=== PATIENT | male | born 1970 | race Caucasian/White ===

== ENCOUNTER 2017-01-09 13:01 | Inpatient (IN) ==
--- NOTE | 2017-01-09 13:13 | Emergency Department Note ---
Disposition Clinical Impression: Sepsis, Obesity, Headache, Cellulitis of right thigh Disposition: Admitted As Inpatient Referrals: Amol Han DO [Primary Care Provider] - Forms: ED Satisfaction Letter General Adult HPI - General Chief complaint: ED Dizziness Stated complaint: dizziness Time Seen by Provider: 01/09/17 13:12 Source: patient Limitations: no limitations - History of Present Illness HPI Narrative: 46-year-old male reports emergency department complaining of feeling weak and somewhat dizzy. He has a headache as well. There is no history of syncope or seizure. No head trauma neck stiffness or rash. The patient has had a cough. He describes some chills and feeling warm as well. He describes a rash on the right medial thigh. No history of bug bite genital swelling or scrotal pain. No swelling around the genitalia reported. No chest pain leg swelling coughing up blood or syncope. There has been no abdominal pain vomiting or diarrhea. No flank or acute back pain. No urinary symptoms. No confusion. No trouble moving the arms or legs independently. No weakness or numbness on one side the body no slurred speech. The patient reports he felt poorly yesterday and left work early. The patient is not known to be diabetic. No other complaints or concerns noted. Pain Scale: 8 - Related Data Home Medications Medication Instructions Recorded Confirmed Valsartan/Hydrochlorothiazide 1 each PO DAILY 03/18/15 03/18/15 [Diovan Hct 80-12.5 mg Tablet] Previous Rx's Medication Instructions Recorded Clindamycin [Cleocin] 300 mg PO Q8HR #6 capsule 03/18/15 OxyCODONE Immed Rel [Roxicodone 5 5 mg PO Q6HR PRN #20 tablet 03/18/15 MG] Allergies Allergy/AdvReac Type Severity Reaction Status Date / Time No Known Allergies Allergy Verified 03/18/15 12:41 All systems ED: reviewed and negative except as stated. Past Medical History - Past Medical History Medical history: Reports: hypertension Surgical history: Reports: other Psychiatric history: Reports: no psych history - Social History Smoking Status: Never smoker Smokeless Tobacco Status: No Alcohol use: Reports: none Drug use: Reports: none Physical Exam - General Limitations: no limitations General appearance: alert, in no apparent distress - Head Head exam: atraumatic, normocephalic, normal inspection - Eye Eye exam: Present: normal appearance, PERRL, EOMI. Absent: scleral icterus, conjunctival injection, mydriasis - ENT ENT exam: normal exam, normal oropharynx, mucous membranes moist, TM's normal bilaterally, normal external ear exam - Neck Neck exam: Present: normal inspection, full ROM, trachea midline. Absent: tenderness - Chest Chest inspection: Present: symmetric chest wall rise. Absent: tenderness - Respiratory Respiratory exam: Present: normal lung sounds bilaterally. Absent: respiratory distress, wheezes, stridor, accessory muscle use, prolonged expiratory phase - Cardiovascular Cardiovascular exam: Present: normal rhythm, tachycardia - Abdominal Exam Abdominal exam: Present: soft, Non-Tender, normal bowel sounds. Absent: tenderness, distention, guarding, rebound, rigidity, pulsatile mass - Extremities Exam Extremities exam: Present: full ROM, normal capillary refill, other (All 4 extremities are warm and well-perfused and supple show no evidence of trauma. The right medial thigh was inspected there is an area that is fairly large and erythematous about 10 cm x 10 cm. There is no scrotal change or evidence of Julio C's gangrene. There is no crepitance of the skin abscess or fluctuance no blackening skin blistering or streaking angitis. All 4 extremity is are warm and well perfused without cyanosis, there is no evidence of acute neuromuscular or neurovascular compromise.). Absent: tenderness, pedal edema, joint swelling, calf tenderness - Expanded Lower Extremity Exam Lower leg exam: Absent: Homans' sign Neurovascular/Tendon exam: Present: normal capillary refill. Absent: motor deficit, sensory deficit, tendon deficit, extremity cold to touch, pallor - Back Exam Back exam: Present: normal inspection, full ROM. Absent: tenderness, CVA tenderness (R), CVA tenderness (L), vertebral tenderness - Neurological Exam Neurological exam: Present: alert, oriented X3, CN II-XII intact. Absent: motor sensory deficit - Psychiatric Psychiatric exam: Present: normal affect, normal mood - Skin Skin exam: Present: warm, dry, intact, normal color. Absent: rash, cyanosis, diaphoresis, erythema, pallor, mottled Course Vital Signs Temperature 99.2 F 01/09/17 13:03 Pulse Rate 125 01/09/17 13:03 Respiratory Rate 18 01/09/17 13:03 Blood Pressure 122/73 01/09/17 13:03 O2 Sat by Pulse Oximetry 97 01/09/17 13:03 Temperature 99.2 F 01/09/17 13:03 Pulse Rate 111 01/09/17 14:30 Respiratory Rate 26 01/09/17 14:30 Blood Pressure 117/87 01/09/17 14:30 O2 Sat by Pulse Oximetry 98 01/09/17 14:30 Oxygen Delivery Oxygen Delivery Nasal Cannula Medical Decision Making - MDM Narrative Medical decision making narrative: Patient is tachycardic, has no elevated white count, his CRP is notably elevated , he appears to be septic, likely from cellulitis, he has a large reddened area on his right medial thigh. The area does not traverse into the scrotum or perineal area. I do not suspect Julio C's gangrene. The patient was given IV fluids in the ED as well as broad-spectrum antibiotics. Blood cultures were sent. Regarding the patient's headache, he has no nuchal rigidity, he reports he headache is there "just enough to feel it" I do not strongly suspect meningitis. A CT scan f the head has been ordered as precautionary. The patient has no abdominal tenderness to palpation. It appears the patient has cellulitis as a primary source for infection with secondary sepsis. Based on the patient's elevated white count, tachycardia, elevated CRP, cellulitis, and apparent sepsis I think it would be appropriate to admit the patient to the hospital. I discussed the case with the hospitalist on-call who has accepted the patient to their care. - Lab Data Lab results reviewed: Yes I reviewed the patient's lab results. Result diagrams: 01/09/17 13:33 01/09/17 13:33 Lab Results 01/09/17 01/09/17 01/09/17 Range/Units 13:20 13:33 13:33 WBC 20.9 H (4.3-11.1) K/mcL RBC 4.83 (4.19-5.50) M/mcL Hgb 13.6 (12.9-16.9) g/dL Hct 40.7 (37.5-50.1) % MCV 84.3 (83.0-100.0) fL MCH 28.2 (28.0-33.3) pg MCHC 33.4 (31.6-35.5) g/dL RDW 14.1 (11.5-14.5) % Plt Count 229 (140-400) K/mcL MPV 9.8 (9.4-12.4) fL Immature Gran % 0.4 (0-4) % Seg Neutrophils % 83.7 % Lymphocytes % 8.5 % Monocytes % 7.3 % Eosinophils % 0.0 % Basophils % 0.1 % Neutrophils # 17.4 H (1.6-8.9) K/mcL Lymphocytes # 1.8 (0.6-4.6) K/mcL Monocytes # 1.5 H (0.0-1.3) K/mcL Eosinophils # 0.0 (0.0-0.6) K/mcL Basophils # 0.0 (0.0-0.2) K/mcL PT 15.8 H (9.4-12.1) Seconds INR 1.5 APTT 31.4 (26.0-36.0) Seconds Sodium (136-145) mEq/L Potassium (3.5-4.5) mEq/L Chloride (98-109) mEq/L Carbon Dioxide (19-29) mEq/L BUN (8-26) mg/dL Creatinine (0.72-1.25) mg/dL Est GFR ( Amer) (> 60) Est GFR (Non-Af Amer) (> 60) BUN/Creatinine Ratio (6-26) Glucose (70-99) mg/dL Calculated Osmolality (280-300) Lactic Acid (0.5-2.2) mmol/L Calcium (8.6-10.8) mg/dL Phosphorus (2.3-4.7) mg/dL Magnesium (1.6-2.6) mg/dL Total Bilirubin (0.2-1.2) mg/dL Direct Bilirubin (0.0-0.5) mg/dL Indirect Bilirubin (0.0-1.2) mg/dL AST (5-34) Units/L ALT (0-55) Units/L Alkaline Phosphatase (38-126) Units/L Troponin I (0-0.03) ng/mL C-Reactive Protein (Less than 5) mg/L B-Natriuretic Peptide (0-100) pg/mL Serum Total Protein (6.0-8.3) g/dL Albumin (3.5-5.0) g/dL Globulin (2.4-3.5) g/dL Albumin/Globulin Ratio (1.1-2.2) Urine Color Yellow (Yellow) Urine Clarity Cloudy A (Clear) Urine pH 7.5 (5.0-8.0) pH Units Ur Specific [place] 1.023 (1.010-1.025) Urine Protein Trace (Neg-Trace) mg/dL Urine Glucose (UA) Normal (Normal) mg/dL Urine Ketones Negative (Negative) mg/dL Urine Blood Negative (Negative) Urine Nitrite Negative (Negative) Urine Bilirubin Negative (Negative) Urine Urobilinogen Normal (Normal) mg/dL Ur Leukocyte Esterase Negative (Negative) Urine Microscopic RBC 0-3 (0-3) per hpf Urine Microscopic WBC 0-3 (0-3) per hpf Ur Squamous Epith Cells Moderate H (None-Few) per lpf Urine Bacteria None Seen (None-Few) per hpf Hyaline Casts None Seen (None-Few) per lpf Ur Culture Indicated? NO (NO) 01/09/17 01/09/17 01/09/17 Range/Units 13:33 13:33 13:33 WBC (4.3-11.1) K/mcL RBC (4.19-5.50) M/mcL Hgb (12.9-16.9) g/dL Hct (37.5-50.1) % MCV (83.0-100.0) fL MCH (28.0-33.3) pg MCHC (31.6-35.5) g/dL RDW (11.5-14.5) % Plt Count (140-400) K/mcL MPV (9.4-12.4) fL Immature Gran % (0-4) % Seg Neutrophils % % Lymphocytes % % Monocytes % % Eosinophils % % Basophils % % Neutrophils # (1.6-8.9) K/mcL Lymphocytes # (0.6-4.6) K/mcL Monocytes # (0.0-1.3) K/mcL Eosinophils # (0.0-0.6) K/mcL Basophils # (0.0-0.2) K/mcL PT (9.4-12.1) Seconds INR APTT (26.0-36.0) Seconds Sodium 134 L (136-145) mEq/L Potassium 4.1 (3.5-4.5) mEq/L Chloride 101 (98-109) mEq/L Carbon Dioxide 23 (19-29) mEq/L BUN 8 (8-26) mg/dL Creatinine 0.94 (0.72-1.25) mg/dL Est GFR ( Amer) > 60 (> 60) Est GFR (Non-Af Amer) > 60 (> 60) BUN/Creatinine Ratio 9 (6-26) Glucose 142 H (70-99) mg/dL Calculated Osmolality 279 L (280-300) Lactic Acid (0.5-2.2) mmol/L Calcium 10.4 (8.6-10.8) mg/dL Phosphorus 1.4 L (2.3-4.7) mg/dL Magnesium 1.4 L (1.6-2.6) mg/dL Total Bilirubin 1.3 H (0.2-1.2) mg/dL Direct Bilirubin 0.5 (0.0-0.5) mg/dL Indirect Bilirubin 0.8 (0.0-1.2) mg/dL AST 14 (5-34) Units/L ALT 20 (0-55) Units/L Alkaline Phosphatase 77 (38-126) Units/L Troponin I 0.01 (0-0.03) ng/mL C-Reactive Protein 168 H (Less than 5) mg/L B-Natriuretic Peptide 13 (0-100) pg/mL Serum Total Protein 6.7 (6.0-8.3) g/dL Albumin 3.2 L (3.5-5.0) g/dL Globulin 3.5 (2.4-3.5) g/dL Albumin/Globulin Ratio 0.9 L (1.1-2.2) Urine Color (Yellow) Urine Clarity (Clear) Urine pH (5.0-8.0) pH Units Ur Specific [place] (1.010-1.025) Urine Protein (Neg-Trace) mg/dL Urine Glucose (UA) (Normal) mg/dL Urine Ketones (Negative) mg/dL Urine Blood (Negative) Urine Nitrite (Negative) Urine Bilirubin (Negative) Urine Urobilinogen (Normal) mg/dL Ur Leukocyte Esterase (Negative) Urine Microscopic RBC (0-3) per hpf Urine Microscopic WBC (0-3) per hpf Ur Squamous Epith Cells (None-Few) per lpf Urine Bacteria (None-Few) per hpf Hyaline Casts (None-Few) per lpf Ur Culture Indicated? (NO) 01/09/17 Range/Units 14:00 WBC (4.3-11.1) K/mcL RBC (4.19-5.50) M/mcL Hgb (12.9-16.9) g/dL Hct (37.5-50.1) % MCV (83.0-100.0) fL MCH (28.0-33.3) pg MCHC (31.6-35.5) g/dL RDW (11.5-14.5) % Plt Count (140-400) K/mcL MPV (9.4-12.4) fL Immature Gran % (0-4) % Seg Neutrophils % % Lymphocytes % % Monocytes % % Eosinophils % % Basophils % % Neutrophils # (1.6-8.9) K/mcL Lymphocytes # (0.6-4.6) K/mcL Monocytes # (0.0-1.3) K/mcL Eosinophils # (0.0-0.6) K/mcL Basophils # (0.0-0.2) K/mcL PT (9.4-12.1) Seconds INR APTT (26.0-36.0) Seconds Sodium (136-145) mEq/L Potassium (3.5-4.5) mEq/L Chloride (98-109) mEq/L Carbon Dioxide (19-29) mEq/L BUN (8-26) mg/dL Creatinine (0.72-1.25) mg/dL Est GFR ( Amer) (> 60) Est GFR (Non-Af Amer) (> 60) BUN/Creatinine Ratio (6-26) Glucose (70-99) mg/dL Calculated Osmolality (280-300) Lactic Acid 1.6 (0.5-2.2) mmol/L Calcium (8.6-10.8) mg/dL Phosphorus (2.3-4.7) mg/dL Magnesium (1.6-2.6) mg/dL Total Bilirubin (0.2-1.2) mg/dL Direct Bilirubin (0.0-0.5) mg/dL Indirect Bilirubin (0.0-1.2) mg/dL AST (5-34) Units/L ALT (0-55) Units/L Alkaline Phosphatase (38-126) Units/L Troponin I (0-0.03) ng/mL C-Reactive Protein (Less than 5) mg/L B-Natriuretic Peptide (0-100) pg/mL Serum Total Protein (6.0-8.3) g/dL Albumin (3.5-5.0) g/dL Globulin (2.4-3.5) g/dL Albumin/Globulin Ratio (1.1-2.2) Urine Color (Yellow) Urine Clarity (Clear) Urine pH (5.0-8.0) pH Units Ur Specific [place] (1.010-1.025) Urine Protein (Neg-Trace) mg/dL Urine Glucose (UA) (Normal) mg/dL Urine Ketones (Negative) mg/dL Urine Blood (Negative) Urine Nitrite (Negative) Urine Bilirubin (Negative) Urine Urobilinogen (Normal) mg/dL Ur Leukocyte Esterase (Negative) Urine Microscopic RBC (0-3) per hpf Urine Microscopic WBC (0-3) per hpf Ur Squamous Epith Cells (None-Few) per lpf Urine Bacteria (None-Few) per hpf Hyaline Casts (None-Few) per lpf Ur Culture Indicated? (NO) - Radiology Data Radiology results reviewed: Yes I reviewed the patient's radiology results.
[2017-01-09 13:45] LABS: Basophils % 0.1 %; Hematocrit 40.7 % (37.5-50.1); Hemoglobin 13.6 g/dL (12.9-16.9); Immature Granulocytes % 0.4 % (0-4); Lymphocytes # 1.8 K/mcL (0.6-4.6); Lymphocytes % 8.5 %; Mean Corpuscular HGB Conc 33.4 g/dL (31.6-35.5); Mean Corpuscular Hemoglobin 28.2 pg (28.0-33.3); Mean Corpuscular Volume 84.3 fL (83.0-100.0); Mean Platelet Volume 9.8 fL (9.4-12.4); Monocytes # 1.5 K/mcL (0.0-1.3); Monocytes % 7.3 %; Neutrophils # 17.4 K/mcL (1.6-8.9); Platelet Count 229 K/mcL (140-400); Red Blood Count 4.83 M/mcL (4.19-5.50); Red Cell Distribution Width 14.1 % (11.5-14.5); Segmented Neutrophils % 83.7 %
[2017-01-09 13:46] LABS: Bilirubin,Urine Negative (Negative); Blood,Urine Negative (Negative); Clarity,Urine Cloudy (Clear); Color,Urine Yellow (Yellow); Glucose,Urine (UA) Normal (Normal); Ketones,Urine Negative (Negative); Leukocyte Esterase,Urine Negative (Negative); Nitrite,Urine Negative (Negative); PH,Urine 7.5 pH Units (5.0-8.0); Protein,Urine Trace mg/dL (Neg-Trace); Specific Gravity,Urine 1.023 (1.010-1.025); Urobilinogen,Urine Normal (Normal)
[2017-01-09 13:47] LABS: Bacteria,Urine None Seen per hpf (None-Few); Hyaline Casts,Urine None Seen per lpf (None-Few); RBC,Urine 0-3 per hpf (0-3); Squamous Epithelial Cell,Urine Moderate per lpf (None-Few); WBC,Urine 0-3 per hpf (0-3)
[2017-01-09] MEDS: 0.9 % Sodium Chloride 1,000 ML IVC SCH ×3 (13:56→20:09)
[2017-01-09 13:59] LABS: Activated Partial Thrombo Time 31.4 Seconds (26.0-36.0); INR 1.5; Prothrombin Time 15.8 Seconds (9.4-12.1)
[2017-01-09 14:20] LABS: Alanine Aminotransferase 20 Units/L (0-55); Albumin 3.2 g/dL (3.5-5.0); Albumin/Globulin Ratio 0.9 (1.1-2.2); Alkaline Phosphatase 77 Units/L (38-126); Aspartate Amino Transferase 14 Units/L (5-34); BUN/Creatinine Ratio 9 (6-26); Bilirubin,Direct 0.5 mg/dL (0.0-0.5); Bilirubin,Indirect 0.8 mg/dL (0.0-1.2); Bilirubin,Total 1.3 mg/dL (0.2-1.2); Blood Urea Nitrogen 8 mg/dL (8-26); Calcium 10.4 mg/dL (8.6-10.8); Carbon Dioxide 23 mEq/L (19-29); Chloride 101 mEq/L (98-109); Globulin 3.5 g/dL (2.4-3.5); Glucose 142 mg/dL (70-99); Magnesium 1.4 mg/dL (1.6-2.6); Osmolality,Calculated 279 (280-300); Phosphorous 1.4 mg/dL (2.3-4.7); Potassium 4.1 mEq/L (3.5-4.5); Sodium 134 mEq/L (136-145); Total Protein 6.7 g/dL (6.0-8.3); eGFR For African Americans > 60 (> 60); eGFR For Non-African Americans > 60 (> 60)
[2017-01-09 14:21] LABS: C-Reactive Protein 168 mg/L (Less than 5)
[2017-01-09] MEDS ORDERED: Piperacillin/Tazobactam 3.375 GM in D5% in Water (Mini-Bag+) 100 ML IVPB ONE (14:35)
[2017-01-09] MEDS ORDERED: Vancomycin 1,000 MG in D5% in Water 250 ML IVPB ONE ×2 (14:35→17:00)
--- NOTE | 2017-01-09 16:03 | Internal Med History&Physical ---
Date of Encounter: 01/09/17 Time of Encounter: 16:01 Assessment and Plan (1) Morbid obesity due to excess calories Current visit: Yes Status: Acute Outpatient follow-up for weight loss regimen. Lifestyle modifications. (2) Obstructive sleep apnea Current visit: Yes Status: Acute We will order nighttime CPAP. (3) Essential hypertension Current visit: Yes Status: Acute I will continue with Diovan per home dose. (4) Sepsis Current visit: Yes Status: Acute Diagnosed based on tachycardia, tachypnea, low grade fever of 99.2 with subjective fevers, elevated white blood cell count of 20,000 and suspected infection in the form of right thigh cellulitis. Lactic acid within normal limits. We will provide treatment with IV fluids. IV broad-spectrum antibiotics Zosyn and vancomycin. Follow-up blood cultures. Monitor temperature curve and WBC trend. He is at high risk for morbidity mortality and complications due to sepsis and treatment with vancomycin which needs frequent blood level monitoring for toxicity and therapeutic effect. Qualifiers: Sepsis type: sepsis due to unspecified organism Qualified Code(s): A41.9 - Sepsis, unspecified organism (5) Cellulitis of right thigh Current visit: Yes Status: Acute Broad spectrum IV antibiotics. Narrow coverage based on culture and sensitivity. (6) DVT prophylaxis Current visit: Yes Status: Acute We will use Lovenox. Internal Medicine - H&P: HPI Chief complaint: Weakness Admitted From: Emergency Dept Plans for Post Hospital Care: Home History of present illness: Mr. Paige is a 46 year old male with past medical history significant for morbid obesity, MEHDI and essential hypertension who presented to the hospital for generalized weakness. He started experiencing headache lightheadedness and generalized weakness associated with hot and cold and subjective fevers 3 days ago. Symptoms have been constant and progressively getting worse. He also noted right thigh though aching pain worse with ambulation and development of a red area of the skin on the inner thigh. He reports associated dry cough but no congestion, no sputum production and no chest pain,. Denies nausea vomiting diarrhea dysuria and urinary frequency. A 10 point review of systems was negative except per history of present illness Family history was negative for premature coronary artery disease. Positive for cancer and paternal grandparents. Past Med Surg Social Fam HX - Past Medical History Medical history: hypertension Psychiatric history: no psych history - Past Surgical History Surgical History: other - Social History Smoking Status: Never smoker Smokeless Tobacco Status: No Alcohol use: none Drug use: none Internal Medicine - H&P: Meds Valsartan/Hydrochlorothiazide [Diovan Hct 80-12.5 mg Tablet] 1 each PO DAILY [History] Allergies No Known Allergies Allergy (Verified 01/09/17 15:18) All Systems PM: A 10-system review of systems was performed and is negative for pertinent findings except as documented above in the HPI. - Constitutional Vitals: Temp Pulse Resp BP Pulse Ox 99.2 F 111 26 117/87 98 01/09/17 13:03 01/09/17 14:30 01/09/17 14:30 01/09/17 14:30 01/09/17 14:30 General appearance: Present: A&O X 3, no acute distress - Eye Eye exam: Present: PERRL, conjuntiva pink, sclera anicteric Pupils: Present: PERRL - Respiratory Respiratory exam: Present: CTAB. Absent: accessory muscle use, rales, rhonchi, wheezes - Cardiovascular Cardiovascular exam: Present: RRR, +S1, +S2. Absent: diastolic murmur, gallop, rubs, systolic murmur - GI/Abdominal GI/Abdominal exam: Present: normal bowel sounds, soft, no peritoneal signs. Absent: distended, tenderness - Extremities Exam Extremities exam: Present: warm, radial pulses palpable and symetrical. Absent : calf tenderness, cyanotic, pedal edema - Neurological Exam Neurological exam: Present: CN II-XII intact, motor sensory deficit (No neck stiffness), oriented X3, no focal deficits. Absent: pronater drift, facial droop, speech deficit - Skin Skin exam: Present: dry, erythema (Right upper inner thigh erythema going towards the inguinal fold, no skin break, no discharge or fluctuance), intact Internal Med - H&P Results - Labs CBC & Chem 7: 01/09/17 13:33 01/09/17 13:33 - Impressions Chest x-ray was personally reviewed, shows normal heart size no infiltrates and effusion or pneumothorax.
[2017-01-09] MEDS ORDERED: Naloxone 0.4 MG/ML INJ IVP PRN (16:25)
[2017-01-09] MEDS ORDERED: Ondansetron 4 MG/2 ML VIAL IVP PRN (16:25)
[2017-01-09] MEDS ORDERED: *HR* HYDROmorphone (PF) 1 MG/ML SYRINGE IVP PRN (16:25)
[2017-01-09] MEDS ORDERED: Acetaminophen 325 MG TABLET PO PRN (16:25)
[2017-01-09] MEDS: *HR* Enoxaparin 40 MG/0.4 ML SYRINGE SQ SCH (17:34)
[2017-01-09] MEDS: hydroCHLOROthiazide 25 MG TABLET PO SCH (17:38)
[2017-01-10] MEDS: Piperacillin/Tazobactam 3.375 GM in D5% in Water (Mini-Bag+) 100 ML IVPB SCH ×3 (00:13→15:52)
[2017-01-10] MEDS: *HR* HYDROcodone/Acet 5/325 mg TABLET PO PRN (00:18)
[2017-01-10] MEDS: 0.9 % Sodium Chloride 1,000 ML IVC SCH ×2 (02:50→10:03)
[2017-01-10 03:37] LABS: Basophils % 0.2 %; Eosinophils % 0.1 %; Hematocrit 39.3 % (37.5-50.1); Hemoglobin 12.6 g/dL (12.9-16.9); Immature Granulocytes % 0.7 % (0-4); Lymphocytes # 1.8 K/mcL (0.6-4.6); Lymphocytes % 9.9 %; Mean Corpuscular HGB Conc 32.1 g/dL (31.6-35.5); Mean Corpuscular Hemoglobin 27.6 pg (28.0-33.3); Mean Corpuscular Volume 86.2 fL (83.0-100.0); Mean Platelet Volume 10.4 fL (9.4-12.4); Monocytes # 1.3 K/mcL (0.0-1.3); Monocytes % 7.1 %; Platelet Count 213 K/mcL (140-400); Red Blood Count 4.56 M/mcL (4.19-5.50); Red Cell Distribution Width 14.4 % (11.5-14.5)
[2017-01-10 03:56] LABS: BUN/Creatinine Ratio 11 (6-26); Blood Urea Nitrogen 11 mg/dL (8-26); Calcium 9.7 mg/dL (8.6-10.8); Carbon Dioxide 25 mEq/L (19-29); Chloride 101 mEq/L (98-109); Glucose 135 mg/dL (70-99); Magnesium 1.4 mg/dL (1.6-2.6); Osmolality,Calculated 279 (280-300); Potassium 3.7 mEq/L (3.5-4.5); Sodium 134 mEq/L (136-145); eGFR For African Americans > 60 (> 60); eGFR For Non-African Americans > 60 (> 60)
[2017-01-10] MEDS: *HR* Enoxaparin 40 MG/0.4 ML SYRINGE SQ SCH ×2 (05:49→18:36)
[2017-01-10] MEDS: Vancomycin 1,750 MG in D5% in Water 500 ML IVPB SCH ×2 (05:49→18:36)
[2017-01-10] MEDS: hydroCHLOROthiazide 25 MG TABLET PO SCH (07:59)
[2017-01-10] MEDS ORDERED: Magnesium Sulfate 2 GM in D5% in Water 100 ML IVPB ONE (08:09)
--- NOTE | 2017-01-10 09:59 | Internal Med Progress Note ---
Date of Encounter: 01/10/17 Time of Encounter: 09:40 - Assessment and plan (1) Sepsis Current Visit: Yes Status: Acute Assessment and plan: Patient presented with fever, tachycardia, leukocytosis with right lower extremity cellulitis. Continue broad-spectrum IV antibiotics for now. Follow- up blood cultures. Monitor vitals closely. Lactate noted to be within normal limits. Qualifiers: Sepsis type: sepsis due to unspecified organism Qualified Code(s): A41.9 - Sepsis, unspecified organism (2) Cellulitis of right thigh Current Visit: Yes Status: Acute Assessment and plan: Continue IV vancomycin and Zosyn. No other source of infection noted at this time. Patient could be having a viral illness. Continue IV hydration, antibiotics, supportive care with when necessary Tylenol. follow-up blood cultures. Plan for pelvic CT to rule out abscess if he continues to spike fevers. (3) Morbid obesity due to excess calories Current Visit: Yes Status: Chronic (4) Obstructive sleep apnea Current Visit: Yes Status: Chronic (5) Essential hypertension Current Visit: Yes Status: Chronic Assessment and plan: Blood pressure noted to be low normal. Hold valsartan for now. - Subjective Interval history: Feels better but has some dyspnea at rest; improving weakness, fever, malaise; - Constitutional Vitals: Temp Pulse Resp BP Pulse Ox 97.8 F 119 18 112/57 92 01/10/17 07:16 01/10/17 07:16 01/10/17 07:16 01/10/17 07:16 01/10/17 08:03 General appearance: Present: A&O X 3, morbidly obese, no acute distress, answers questions appropriately - Respiratory Respiratory exam: Present: CTAB. Absent: accessory muscle use, rales, rhonchi, wheezes - Cardiovascular Cardiovascular exam: Present: RRR, +S1, +S2, tachycardia. Absent: diastolic murmur, gallop, rubs, systolic murmur - GI/Abdominal GI/Abdominal exam: Present: normal bowel sounds, soft, no peritoneal signs. Absent: distended, tenderness - Extremities Exam Extremities exam: Present: full ROM, warm, radial pulses palpable and symetrical. Absent: calf tenderness, cyanotic, pedal edema Additional comments: Right medial proximal thigh and groin with erythema, induration, mild tenderness ; no open wounds/ulcers - Neurological Exam Neurological exam: Present: CN II-XII intact, oriented X3, no focal deficits. Absent: pronater drift, facial droop, speech deficit Internal Medicine: Result - Labs CBC & Chem 7: 01/10/17 02:43 01/10/17 02:43 Labs: Short CBC 01/10/17 Range/Units 02:43 WBC 18.3 H (4.3-11.1) K/mcL Hgb 12.6 L (12.9-16.9) g/dL Hct 39.3 (37.5-50.1) % Plt Count 213 (140-400) K/mcL Neutrophils # 15.0 H (1.6-8.9) K/mcL BMP 01/10/17 02:43 Sodium 134 L Potassium 3.7 Chloride 101 Carbon Dioxide 25 BUN 11 Creatinine 1.00 Glucose 135 H Calcium 9.7 - ABG Interpretation ABG results: PT/INR, D-dimer PT 15.8 Seconds (9.4-12.1) H 01/09/17 13:33 Consult Discharge Plan - Plan Referrals: Amol aHn DO [Primary Care Provider] -
[2017-01-10] MEDS: Valsartan 80 MG TABLET PO SCH (16:14)
[2017-01-10] MEDS: Acetaminophen 325 MG TABLET PO PRN (16:25)
[2017-01-11] MEDS: Piperacillin/Tazobactam 3.375 GM in D5% in Water (Mini-Bag+) 100 ML IVPB SCH ×4 (00:25→23:57)
[2017-01-11 04:35] LABS: Basophils % 0.2 %; Eosinophils % 0.2 %; Hematocrit 36.3 % (37.5-50.1); Hemoglobin 12.2 g/dL (12.9-16.9); Immature Granulocytes % 0.5 % (0-4); Lymphocytes # 1.2 K/mcL (0.6-4.6); Lymphocytes % 6.6 %; Mean Corpuscular HGB Conc 33.6 g/dL (31.6-35.5); Mean Corpuscular Hemoglobin 28.4 pg (28.0-33.3); Mean Corpuscular Volume 84.6 fL (83.0-100.0); Mean Platelet Volume 10.1 fL (9.4-12.4); Monocytes # 0.8 K/mcL (0.0-1.3); Monocytes % 4.4 %; Neutrophils # 15.7 K/mcL (1.6-8.9); Platelet Count 200 K/mcL (140-400); Red Blood Count 4.29 M/mcL (4.19-5.50); Red Cell Distribution Width 14.3 % (11.5-14.5); Segmented Neutrophils % 88.1 %
[2017-01-11 04:48] LABS: BUN/Creatinine Ratio 13 (6-26); Blood Urea Nitrogen 12 mg/dL (8-26); Calcium 10.2 mg/dL (8.6-10.8); Carbon Dioxide 25 mEq/L (19-29); Chloride 101 mEq/L (98-109); Glucose 144 mg/dL (70-99); Osmolality,Calculated 278 (280-300); Potassium 3.8 mEq/L (3.5-4.5); Sodium 133 mEq/L (136-145); eGFR For African Americans > 60 (> 60); eGFR For Non-African Americans > 60 (> 60)
[2017-01-11] MEDS: Vancomycin 2,000 MG in D5% in Water 500 ML IVPB SCH ×2 (06:21→19:38)
[2017-01-11] MEDS: *HR* Enoxaparin 40 MG/0.4 ML SYRINGE SQ SCH (06:22)
[2017-01-11] MEDS: Valsartan 80 MG TABLET PO SCH (08:14)
[2017-01-11] MEDS: hydroCHLOROthiazide 25 MG TABLET PO SCH (08:14)
[2017-01-11] MEDS ORDERED: *HR* HYDROcodone/Acet 10/325 mg TABLET PO PRN (11:28)
--- NOTE | 2017-01-11 15:13 | Internal Med Progress Note ---
Date of Encounter: 01/11/17 Time of Encounter: 10:45 - Assessment and plan (1) Sepsis Current Visit: Yes Status: Acute Assessment and plan: Patient presented with fever, tachycardia, leukocytosis with right lower extremity cellulitis. Improving slowly. Continue broad-spectrum IV antibiotics for now. Preliminary blood cultures negative. Monitor vitals closely. Lactate noted to be within normal limits. Qualifiers: Sepsis type: sepsis due to unspecified organism Qualified Code(s): A41.9 - Sepsis, unspecified organism (2) Cellulitis of right thigh Current Visit: Yes Status: Acute Assessment and plan: Continue IV vancomycin and Zosyn. No other source of infection noted at this time. Slightly improved leukocytosis, has been afebrile since yesterday. We will obtain CT pelvis and right thigh as it is difficult to rule out abscess due to morbid obesity. Continue IV antibiotics, supportive care with when necessary Tylenol. follow-up blood cultures, so far negative. (3) Morbid obesity due to excess calories Current Visit: Yes Status: Chronic (4) Obstructive sleep apnea Current Visit: Yes Status: Chronic (5) Essential hypertension Current Visit: Yes Status: Chronic - Subjective Interval history: Reports feeling better. No fever, chills, chest pain or shortness of breath. Improved malaise and generalized weakness. - Constitutional Vitals: Temp Pulse Resp BP Pulse Ox 99.5 F 96 17 105/63 94 01/11/17 11:30 01/11/17 11:30 01/11/17 11:30 01/11/17 11:30 01/11/17 11:30 General appearance: Present: A&O X 3, morbidly obese, answers questions appropriately - Respiratory Respiratory exam: Present: CTAB. Absent: accessory muscle use, rales, rhonchi, wheezes - Cardiovascular Cardiovascular exam: Present: RRR, +S1, +S2. Absent: diastolic murmur, gallop, rubs, systolic murmur - Extremities Exam Extremities exam: Present: warm, radial pulses palpable and symetrical. Absent : calf tenderness, cyanotic, pedal edema Additional comments: Right medial thigh and groin area with erythema, significant induration and mild tenderness Internal Medicine: Result - Labs CBC & Chem 7: 01/11/17 04:27 01/11/17 04:27 Labs: Short CBC 01/11/17 Range/Units 04:27 WBC 17.8 H (4.3-11.1) K/mcL Hgb 12.2 L (12.9-16.9) g/dL Hct 36.3 L (37.5-50.1) % Plt Count 200 (140-400) K/mcL Neutrophils # 15.7 H (1.6-8.9) K/mcL BMP 01/11/17 04:27 Sodium 133 L Potassium 3.8 Chloride 101 Carbon Dioxide 25 BUN 12 Creatinine 0.89 Glucose 144 H Calcium 10.2 - ABG Interpretation ABG results: PT/INR, D-dimer PT 15.8 Seconds (9.4-12.1) H 01/09/17 13:33 D-Dimer 422 ng/mLFEU (0-500) 01/10/17 10:46 Consult Discharge Plan - Plan Referrals: Amol Han DO [Primary Care Provider] - 01/19/17 1:30 pm (please follow up as schedue...)
--- NOTE | 2017-01-11 16:41 | Electrocardiograph Report ---
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
[2017-01-11] MEDS: Acetaminophen 325 MG TABLET PO PRN (19:39)
[2017-01-11] MEDS: Lactobacillus 1 EACH CAP.SPRINK PO SCH (21:06)
[2017-01-12] MEDS: Vancomycin 1,750 MG in D5% in Water 500 ML IVPB SCH ×2 (05:28→18:00)
[2017-01-12] MEDS: *HR* Enoxaparin 60 MG/0.6 ML SYRINGE SQ SCH (05:29)
[2017-01-12 06:11] LABS: Basophils % 0.2 %; Eosinophils # 0.1 K/mcL (0.0-0.6); Eosinophils % 0.4 %; Hematocrit 35.7 % (37.5-50.1); Hemoglobin 11.8 g/dL (12.9-16.9); Immature Granulocytes % 0.8 % (0-4); Lymphocytes % 7.3 %; Mean Corpuscular HGB Conc 33.1 g/dL (31.6-35.5); Mean Corpuscular Hemoglobin 27.6 pg (28.0-33.3); Mean Corpuscular Volume 83.4 fL (83.0-100.0); Monocytes # 0.8 K/mcL (0.0-1.3); Monocytes % 5.6 %; Neutrophils # 12.2 K/mcL (1.6-8.9); Platelet Count 198 K/mcL (140-400); Red Blood Count 4.28 M/mcL (4.19-5.50); Red Cell Distribution Width 14.2 % (11.5-14.5); Segmented Neutrophils % 85.7 %
[2017-01-12] MEDS: Piperacillin/Tazobactam 3.375 GM in D5% in Water (Mini-Bag+) 100 ML IVPB SCH ×2 (07:25→16:20)
[2017-01-12] MEDS: Valsartan 80 MG TABLET PO SCH (07:25)
[2017-01-12] MEDS: Lactobacillus 1 EACH CAP.SPRINK PO SCH ×2 (07:25→20:09)
[2017-01-12] MEDS: hydroCHLOROthiazide 25 MG TABLET PO SCH (07:25)
--- NOTE | 2017-01-12 17:33 | Internal Med Progress Note ---
Date of Encounter: 01/12/17 Time of Encounter: 09:00 - Assessment and plan (1) Sepsis Current Visit: Yes Status: Acute Assessment and plan: Patient presented with fever, tachycardia, leukocytosis with right lower extremity cellulitis. Improving slowly. Continue broad-spectrum IV antibiotics for now. Preliminary blood cultures negative. Monitor vitals closely. Lactate noted to be within normal limits. Patient is at high risk because he is on vancomycin, needed close monitoring. Qualifiers: Sepsis type: sepsis due to unspecified organism Qualified Code(s): A41.9 - Sepsis, unspecified organism (2) Cellulitis of right thigh Current Visit: Yes Status: Acute Assessment and plan: Continue IV vancomycin and Zosyn. No other source of infection noted at this time. Slightly improved leukocytosis. CT shows no drainable abscess or signs of fasciitis. We will continue closely monitor patient. (3) Morbid obesity due to excess calories Current Visit: Yes Status: Chronic Assessment and plan: Need lifestyle modification (4) Essential hypertension Current Visit: Yes Status: Chronic Assessment and plan: Blood pressure noted to be low normal. Hold valsartan for now. (5) DVT prophylaxis Current Visit: Yes Status: Acute Assessment and plan: Lovenox subcutaneously - Time Spent With Patient Greater than 35 minutes - Subjective Interval history: Patient is a 46-year-old male admitted for sepsis and cellulitis of her right inguinal area. Past medical history is significant for hypertension and morbid obesity. Patient was seen and examined. No fever, no shots of breath. Still right leg redness and swelling, skin is warm. Right scrotum swelling. Vitals are stable. CT scan shows no signs of fasciitis or drainable abscess. Will continue broad spectrum antibiotic treatment. Blood culture negative. - Constitutional Vitals: Temp Pulse Resp BP Pulse Ox 100.0 F H 93 18 130/83 93 01/12/17 15:03 01/12/17 15:03 01/12/17 15:03 01/12/17 15:03 01/12/17 15:03 General appearance: Present: A&O X 3, morbidly obese, answers questions appropriately - Head Head exam: Present: atraumatic, normocephalic - Eye Eye exam: Present: PERRL, conjuntiva pink, sclera anicteric Pupils: Present: PERRL - Neck Neck exam general surgery: Present: supple, trachea midline. Absent: lymphadenopathy - Respiratory Respiratory exam: Present: CTAB. Absent: accessory muscle use, rales, rhonchi, wheezes - Cardiovascular Cardiovascular exam: Present: RRR, +S1, +S2. Absent: diastolic murmur, gallop, rubs, systolic murmur - GI/Abdominal GI/Abdominal exam: Present: normal bowel sounds, soft, no peritoneal signs. Absent: distended, tenderness - Extremities Exam Extremities exam: Present: warm, radial pulses palpable and symetrical. Absent : calf tenderness, cyanotic, pedal edema Additional comments: Right leg redness/swelling on the inner side of thigh and inguinal area. Skin warmth noticed - Neurological Exam Neurological exam: Present: CN II-XII intact, oriented X3, no focal deficits. Absent: pronater drift, facial droop, speech deficit - Skin Skin exam: Present: dry, intact Internal Medicine: Result - Labs CBC & Chem 7: 01/12/17 05:47 01/11/17 04:27 Labs: Short CBC 01/12/17 Range/Units 05:47 WBC 14.2 H (4.3-11.1) K/mcL Hgb 11.8 L (12.9-16.9) g/dL Hct 35.7 L (37.5-50.1) % Plt Count 198 (140-400) K/mcL Neutrophils # 12.2 H (1.6-8.9) K/mcL - ABG Interpretation ABG results: PT/INR, D-dimer PT 15.8 Seconds (9.4-12.1) H 01/09/17 13:33 D-Dimer 422 ng/mLFEU (0-500) 01/10/17 10:46 - Impressions Impressions Femur CT 01/11/17 15:07 IMPRESSION: 1. Subcutaneous fat stranding and skin thickening in the medial aspect of the proximal right thigh compatible with cellulitis. Foci of subcutaneous gas raising the possibility of a necrotizing process versus recent procedure. No evidence of fasciitis. No drainable fluid collection. 2. Mild likely reactive bilateral inguinal lymphadenopathy. 3. No acute osseous abnormality. D/ / Fernie Bautista MD / Fernie Bautista MD Interpreting Provider: Fernie Bautista MD Pelvis CT 01/11/17 15:09 IMPRESSION: Soft tissue edema in the right anterior inguinal region without discrete fluid collection. This is likely related to the patient's reported cellulitis. There are scattered small foci of air density in the anterior soft tissues. This raises a question of recent intervention. . There is no fluid near the subcutaneous air density. No defined abscess. Right renal calculus. Multiple small pelvic and inguinal lymph nodes suggesting reactive lymph nodes. No pathologic enlargement noted. D/ / Dewayne Crump / Dewayne Crump Interpreting Provider: Dewayne Crump Consult Discharge Plan - Plan Referrals: Amol Han DO [Primary Care Provider] - 01/19/17 1:30 pm (please follow up as schedue...)
[2017-01-12] MEDS: Acetaminophen 325 MG TABLET PO PRN (18:03)
[2017-01-12] MEDS: *HR* HYDROcodone/Acet 5/325 mg TABLET PO PRN (20:09)
[2017-01-13] MEDS: Piperacillin/Tazobactam 3.375 GM in D5% in Water (Mini-Bag+) 100 ML IVPB SCH ×3 (00:51→18:00)
[2017-01-13] MEDS: Acetaminophen 325 MG TABLET PO PRN (02:39)
[2017-01-13 05:29] LABS: Basophils % 0.3 %; Eosinophils # 0.1 K/mcL (0.0-0.6); Eosinophils % 1.1 %; Hematocrit 37.8 % (37.5-50.1); Hemoglobin 12.6 g/dL (12.9-16.9); Immature Granulocytes % 0.9 % (0-4); Lymphocytes # 1.1 K/mcL (0.6-4.6); Lymphocytes % 11.4 %; Mean Corpuscular HGB Conc 33.3 g/dL (31.6-35.5); Mean Corpuscular Hemoglobin 27.9 pg (28.0-33.3); Mean Corpuscular Volume 83.8 fL (83.0-100.0); Mean Platelet Volume 10.8 fL (9.4-12.4); Monocytes # 0.7 K/mcL (0.0-1.3); Monocytes % 6.5 %; Neutrophils # 7.9 K/mcL (1.6-8.9); Platelet Count 264 K/mcL (140-400); Red Blood Count 4.51 M/mcL (4.19-5.50); Segmented Neutrophils % 79.8 %
[2017-01-13 05:40] LABS: BUN/Creatinine Ratio 16 (6-26); Blood Urea Nitrogen 13 mg/dL (8-26); Calcium 10.3 mg/dL (8.6-10.8); Carbon Dioxide 23 mEq/L (19-29); Chloride 105 mEq/L (98-109); Glucose 125 mg/dL (70-99); Osmolality,Calculated 284 (280-300); Sodium 136 mEq/L (136-145); eGFR For African Americans > 60 (> 60); eGFR For Non-African Americans > 60 (> 60)
[2017-01-13 05:44] LABS: Potassium 4.3 mEq/L (3.5-4.5)
[2017-01-13] MEDS: Vancomycin 1,750 MG in D5% in Water 500 ML IVPB SCH ×2 (05:58→18:03)
[2017-01-13] MEDS: *HR* Enoxaparin 60 MG/0.6 ML SYRINGE SQ SCH (05:58)
[2017-01-13] MEDS: hydroCHLOROthiazide 25 MG TABLET PO SCH (08:19)
[2017-01-13] MEDS: Lactobacillus 1 EACH CAP.SPRINK PO SCH ×2 (08:19→20:09)
[2017-01-13] MEDS: Valsartan 80 MG TABLET PO SCH (08:20)
[2017-01-13] MEDS ORDERED: Aminoglycoside Consult 1 EACH MC ONE (12:49)
--- NOTE | 2017-01-13 17:43 | Internal Med Progress Note ---
Date of Encounter: 01/13/17 Time of Encounter: 10:00 - Assessment and plan (1) Sepsis Current Visit: Yes Status: Acute Assessment and plan: Patient presented with fever, tachycardia, leukocytosis with right lower extremity cellulitis. Improving slowly. Continue broad-spectrum IV antibiotics for now. Preliminary blood cultures negative. Monitor vitals closely. Lactate noted to be within normal limits. WBC get down to normal limit. Patient is at high risk because he is on vancomycin, needed close monitoring. Qualifiers: Sepsis type: sepsis due to unspecified organism Qualified Code(s): A41.9 - Sepsis, unspecified organism (2) Cellulitis of right thigh Current Visit: Yes Status: Acute Assessment and plan: Continue IV vancomycin and Zosyn. No other source of infection noted at this time. WBC get down to WNL. CT shows no drainable abscess or signs of fasciitis. We will continue closely monitor patient. (3) Morbid obesity due to excess calories Current Visit: Yes Status: Chronic Assessment and plan: Need lifestyle modification (4) Essential hypertension Current Visit: Yes Status: Chronic Assessment and plan: Blood pressure is stable. Cont home med. (5) DVT prophylaxis Current Visit: Yes Status: Acute Assessment and plan: Lovenox subcutaneously - Time Spent With Patient Greater than 35 minutes - Subjective Interval history: Patient is a 46-year-old male admitted for sepsis and cellulitis of her right inguinal area. Past medical history is significant for hypertension and morbid obesity. Patient was seen and examined. No fever, no shots of breath. Still right leg redness and swelling. skin warmth has improved. Right scrotum swelling. Vitals are stable. WBC get down. Will continue antibiotic treatment. - Constitutional Vitals: Temp Pulse Resp BP Pulse Ox 98.6 F 78 17 133/74 98 01/13/17 15:23 01/13/17 15:23 01/13/17 15:23 01/13/17 15:23 01/13/17 15:23 General appearance: Present: A&O X 3, morbidly obese, answers questions appropriately - Head Head exam: Present: atraumatic, normocephalic - Eye Eye exam: Present: PERRL, conjuntiva pink, sclera anicteric Pupils: Present: PERRL - Neck Neck exam general surgery: Present: supple, trachea midline. Absent: lymphadenopathy - Respiratory Respiratory exam: Present: CTAB. Absent: accessory muscle use, rales, rhonchi, wheezes - Cardiovascular Cardiovascular exam: Present: RRR, +S1, +S2. Absent: diastolic murmur, gallop, rubs, systolic murmur - GI/Abdominal GI/Abdominal exam: Present: normal bowel sounds, soft, no peritoneal signs. Absent: distended, tenderness - Extremities Exam Extremities exam: Present: warm, radial pulses palpable and symetrical. Absent : calf tenderness, cyanotic, pedal edema Additional comments: Right leg and right inguinal area swelling, redness, mild skin warmth. - Neurological Exam Neurological exam: Present: CN II-XII intact, oriented X3, no focal deficits. Absent: pronater drift, facial droop, speech deficit - Skin Skin exam: Present: dry, intact Internal Medicine: Result - Labs CBC & Chem 7: 01/13/17 05:19 01/13/17 05:19 Labs: Short CBC 01/13/17 Range/Units 05:19 WBC 10.0 (4.3-11.1) K/mcL Hgb 12.6 L (12.9-16.9) g/dL Hct 37.8 (37.5-50.1) % Plt Count 264 (140-400) K/mcL Neutrophils # 7.9 (1.6-8.9) K/mcL BMP 01/13/17 05:19 Sodium 136 Potassium 4.3 Chloride 105 Carbon Dioxide 23 BUN 13 Creatinine 0.82 Glucose 125 H Calcium 10.3 - ABG Interpretation ABG results: PT/INR, D-dimer PT 15.8 Seconds (9.4-12.1) H 01/09/17 13:33 D-Dimer 422 ng/mLFEU (0-500) 01/10/17 10:46 Consult Discharge Plan - Plan Referrals: Amol Han DO [Primary Care Provider] - 01/19/17 1:30 pm (please follow up as schedue...)
[2017-01-14] MEDS: Piperacillin/Tazobactam 3.375 GM in D5% in Water (Mini-Bag+) 100 ML IVPB SCH ×2 (00:43→08:15)
[2017-01-14] MEDS: Acetaminophen 325 MG TABLET PO PRN (03:10)
[2017-01-14] MEDS: *HR* Enoxaparin 60 MG/0.6 ML SYRINGE SQ SCH (06:10)
[2017-01-14] MEDS: Vancomycin 1,750 MG in D5% in Water 500 ML IVPB SCH (06:11)
[2017-01-14 06:13] LABS: Basophils % 0.4 %; Eosinophils # 0.1 K/mcL (0.0-0.6); Eosinophils % 1.2 %; Hemoglobin 12.3 g/dL (12.9-16.9); Immature Granulocytes % 1.2 % (0-4); Lymphocytes # 1.5 K/mcL (0.6-4.6); Lymphocytes % 15.3 %; Mean Corpuscular HGB Conc 33.2 g/dL (31.6-35.5); Mean Corpuscular Hemoglobin 28.2 pg (28.0-33.3); Mean Corpuscular Volume 84.9 fL (83.0-100.0); Mean Platelet Volume 11.7 fL (9.4-12.4); Monocytes # 0.8 K/mcL (0.0-1.3); Monocytes % 7.5 %; Neutrophils # 7.4 K/mcL (1.6-8.9); Platelet Count 219 K/mcL (140-400); Red Blood Count 4.36 M/mcL (4.19-5.50); Red Cell Distribution Width 14.2 % (11.5-14.5); Segmented Neutrophils % 74.4 %
[2017-01-14 06:29] LABS: BUN/Creatinine Ratio 14 (6-26); Blood Urea Nitrogen 12 mg/dL (8-26); Calcium 10.5 mg/dL (8.6-10.8); Carbon Dioxide 23 mEq/L (19-29); Chloride 105 mEq/L (98-109); Glucose 116 mg/dL (70-99); Osmolality,Calculated 285 (280-300); Sodium 137 mEq/L (136-145); eGFR For African Americans > 60 (> 60); eGFR For Non-African Americans > 60 (> 60)
[2017-01-14 07:29] VITALS: BP 155/80
[2017-01-14] MEDS: Valsartan 80 MG TABLET PO SCH (08:16)
[2017-01-14] MEDS: hydroCHLOROthiazide 25 MG TABLET PO SCH (08:16)
[2017-01-14] MEDS: Lactobacillus 1 EACH CAP.SPRINK PO SCH (08:16)
--- NOTE | 2017-01-14 10:12 | Discharge Summary ---
Date of Encounter: 01/14/17 Time of Encounter: 09:00 - Discharge Diagnosis (1) Sepsis Priority: Primary Status: Acute Qualifiers: Sepsis type: sepsis due to unspecified organism Qualified Code(s): A41.9 - Sepsis, unspecified organism (2) Cellulitis of right thigh Priority: Primary Status: Acute (3) Morbid obesity due to excess calories Priority: Secondary Status: Chronic (4) Essential hypertension Priority: Secondary Status: Chronic (5) DVT prophylaxis Priority: Secondary Status: Acute - Discharge Medications Prescriptions: Amoxicillin/Clavulanate [Augmentin] 875 mg PO BIDWM #14 tablet Sulfamethoxazole/Trimeth DS [Bactrim Ds] 1 each PO BID #14 tablet Home Medications: Valsartan/Hydrochlorothiazide [Diovan Hct 80-12.5 mg Tablet] 1 each PO DAILY [History] Amoxicillin/Clavulanate [Augmentin] 875 mg PO BIDWM #14 tablet 01/14/17 [Rx] Sulfamethoxazole/Trimeth DS [Bactrim Ds] 1 each PO BID #14 tablet 01/14/17 [Rx] Allergies/Adverse Reactions: Allergies No Known Allergies Allergy (Verified 01/09/17 15:18) Procedures/tests Complete & Pending: Procedures Performed prior 72 hours Category Date Time Status CT femur RT w con [CT] Routine Cat Scan 01/11/17 15:[address] pelvis w iv no oral [CT] Routine Cat Scan 01/11/17 15:09 Completed - Notes to Outpatient Provider 1. Continue Bactrim DS and Augmentin by mouth for 7 more days. Reevaluate by PCP in 7 days. Date of admission: 01/09/17 16:25 Primary care physician: Eliane Cai Discharging clinician: Mable Fletcher Anticipated date of discharge: 01/14/17 - Patient Status Disposition: Home, Self-Care Condition: Fair Functional capacity at discharge: independent ambulation Overall status at discharge: patient is progressing back to baseline - Discharge Instructions Follow Up With: Amol Han DO [Primary Care Provider] - 01/19/17 1:30 pm (please follow up as schedue...) - Diet and Activity Activity: increase activity as tolerated Diet: advance to your usual diet Interval History: Mr. Paige is a 46 year old male with past medical history significant for morbid obesity, MEHDI and essential hypertension who presented to the hospital for generalized weakness. He started experiencing headache lightheadedness and generalized weakness associated with hot and cold and subjective fevers 3 days ago. Symptoms have been constant and progressively getting worse. He also noted right thigh though aching pain worse with ambulation and development of a red area of the skin on the inner thigh. He reports associated dry cough but no congestion, no sputum production and no chest pain,. Denies nausea vomiting diarrhea dysuria and urinary frequency. Hospital course: Mr. Paige is a 46 year old male admitted for sepsis and right groin cellulitis. Patient will placed on IV fluid, IV antibiotic. Blood culture negative. Abdominal and leg CAT scan shows no drainable abscess or signs of fasciitis. After treatment the patient's condition has improved. The leg redness and warmness has significantly decreased. Will switch to by mouth antibiotics and discharge patient home. Patient will follow-up with PCP as outpatient. I saw and again examined the patient today. He is awake alert. No pain. Still swelling on right groin and right thigh but improved. Redness and warmth improved significantly. No fever, vitals stable. Will d/c home with po Bactrim DS twice a day and Augmentin 875mg twice a day. Patient will follow-up with PCP in one week to reevaluate to the cellulitis. Patient will give him 1 week work excuse. - Time Spent with Patient Total time spent providing and/or coordinating discharge services: 25 min Less than 30 minutes - Constitutional Vitals: Temp Pulse Resp BP Pulse Ox 98.7 F 80 16 155/80 95 01/14/17 07:27 01/14/17 07:27 01/14/17 07:27 01/14/17 07:27 01/14/17 08:24 General appearance: Present: A&O X 3, morbidly obese, answers questions appropriately - Head Head exam: Present: atraumatic, normocephalic - Eye Eye exam: Present: PERRL, conjuntiva pink, sclera anicteric Pupils: Present: PERRL - Neck Neck exam general surgery: Present: supple, trachea midline. Absent: lymphadenopathy - Respiratory Respiratory exam: Present: CTAB. Absent: accessory muscle use, rales, rhonchi, wheezes - Cardiovascular Cardiovascular exam: Present: RRR, +S1, +S2. Absent: diastolic murmur, gallop, rubs, systolic murmur - GI/Abdominal GI/Abdominal exam: Present: normal bowel sounds, soft, no peritoneal signs. Absent: distended, tenderness - Extremities Exam Extremities exam: Present: warm, radial pulses palpable and symetrical. Absent : calf tenderness, cyanotic, pedal edema Additional comments: Mild edema in right groin and thigh, improved redness and almost no warmth. - Neurological Exam Neurological exam: Present: CN II-XII intact, oriented X3, no focal deficits. Absent: pronater drift, facial droop, speech deficit - Skin Skin exam: Present: dry, intact
[2017-01-14] MEDS ORDERED: Sulfamethoxazole/Trimeth DS 1 EACH TABLET PO SCH (21:00)
== END 2017-01-14 12:50 | disposition home or self-care (01) | DRG 872 ==
LOC: 2ANU 13:01 → EMEROO 13:01 → 2ANU 16:10 → SUATTDRO 16:25 → 2ANU 16:29
PROVIDERS: ADMIT Internal Medicine; ATTEND Internal Medicine

== ENCOUNTER 2017-09-20 08:36 | Inpatient (IN) ==
--- NOTE | 2017-09-19 21:15 | Discharge Summary ---
<Netta Geiger - Last Filed: 09/20/17 08:37> Date of Encounter: 09/20/17 - Discharge Diagnosis (1) Status post total knee replacement, left Priority: Primary Status: Acute (2) Arthritis of knee, left Priority: Primary Status: Acute (3) Morbid obesity due to excess calories Priority: Secondary Status: Chronic (4) Obstructive sleep apnea Priority: Secondary Status: Chronic (5) Essential hypertension Priority: Secondary Status: Chronic - Hospital Course Hospital course: Mr. Paige is a 47 year old male - Time Spent with Patient Total time spent providing and/or coordinating discharge services: - Discharge Medications Home Medications: Valsartan/Hydrochlorothiazide [Diovan Hct 160-25 mg Tablet] 1 tab PO DAILY 05/19 [History] OxyCODONE Immed Rel [Roxicodone 5 MG] 5 mg PO Q6HR PRN 7 Days #28 tablet [Rx] Acetaminophen [Tylenol Arthritis] 1,300 mg PO Q8H PRN 09/20/17 [History] Aspirin Enteric Coated [Aspirin EC] 325 mg PO BID #20 tablet. 09/20/17 [Rx] Allergies/Adverse Reactions: 3 Allergy/AdvReac Type Severity Reaction Status Date / Time No Known Allergies Allergy Verified 09/20/17 09:09 Primary care physician: Eliane Cai - Patient Status Disposition: Transfer Inpatient Rehab Fac Condition: Good - Discharge Instructions Follow Up With: Amol Han DO [Primary Care Provider] - <FredHan Herrera - Last Filed: 09/22/17 06:39> Date of Encounter: 09/22/17 Time of Encounter: 06:39 - Discharge Diagnosis (1) Arthritis of knee, left Priority: Primary Status: Chronic (2) Status post total knee replacement, left Priority: Primary Status: Acute (3) Essential hypertension Priority: Secondary Status: Chronic (4) Morbid obesity due to excess calories Priority: Secondary Status: Chronic (5) Obstructive sleep apnea Priority: Secondary Status: Chronic - Hospital Course Hospital course: Mr. Paige is a 47 year old male As post left total knee replacement. The patient had an uneventful postoperative course. They received antibiotics and physical therapy and were discharged in stable condition. There will follow -up in the office in 2 weeks. - Time Spent with Patient Total time spent providing and/or coordinating discharge services: Primary care physician: Eliane Cai - Patient Status Functional capacity at discharge: uses cane/walker Overall status at discharge: patient is progressing back to baseline
--- NOTE | 2017-09-19 21:17 | Physician Discharge Referral ---
<Netta Geiger L - Last Filed: 09/19/17 21:16> ExtendedCare Referral Info Transfer To: [facility] Provider in Charge: Provider in Charge after Transfer: PCP Institutional Level of Care: Skilled - Diagnosis (1) Status post total knee replacement, left Priority: Primary Status: Acute (2) Arthritis of knee, left Priority: Primary Status: Acute (3) Morbid obesity due to excess calories Priority: Secondary Status: Chronic (4) Obstructive sleep apnea Priority: Secondary Status: Chronic (5) Essential hypertension Priority: Secondary Status: Chronic Expected Duration of Placement: < 30 days Prognosis: Good Aware of Diagnosis: Patient Aware of Prognosis: Patient - Transfer Medications Prescriptions: OxyCODONE Immed Rel [Roxicodone 5 MG] 5 mg PO Q6HR PRN 7 Days #28 tablet PRN Reason: Severe Pain Aspirin Enteric Coated [Aspirin EC] 325 mg PO BID #20 tablet.dr Boucher Medications: Valsartan/Hydrochlorothiazide [Diovan Hct 160-25 mg Tablet] 1 tab PO DAILY 05/19 [History] OxyCODONE Immed Rel [Roxicodone 5 MG] 5 mg PO Q6HR PRN 7 Days #28 tablet [Rx] Acetaminophen [Tylenol Arthritis] 1,300 mg PO Q8H PRN 09/20/17 [History] Aspirin Enteric Coated [Aspirin EC] 325 mg PO BID #20 tablet. 09/20/17 [Rx] Allergies/Adverse Reactions: 3 Allergy/AdvReac Type Severity Reaction Status Date / Time No Known Allergies Allergy Verified 09/20/17 09:09 - Respiratory Orders None Smoking Cessation: Smoking cessation has been advised. For more information, call the [place] Tobacco Quit Line at 4-939-DBRQ-NOW. - Mobility Orders Ambulate - Rehabiliation Orders Rehab Potential: Good Rehab Orders: ROM Exercises, Evaluation for Physical Therapy, Evaluation for Occupational Therapy Other: Opsite dressing, leave intact until first post-operative visit. If dressing becomes >50% saturated, contact office, remove dressing and place appropriate dressing in its place. Do not allow for dressing to get wet. Zipline/Javier in place, plan to remove at post-operative day #14-16. Total Joint Precautions x 6 weeks Apply cold therapy wrap 3-6x/day for 20 minutes at a time. Encourage ambulation throughout the day Use Incentive spirometer 10x/hour. Elevate affected extremity above heart as tolerated. Brace: Wear knee immobilizer at night x 2 weeks.~ CERTIFICATION: I certify that the transfer of the above named patient to an Extended Care Facility is necessary for the continuing treatment of the diagnosis listed. The above information is true and accurate reflection of patient's current condition. Confidential - Redisclosure prohibited without a patient's written consent. <Han Ibarra - Last Filed: 09/20/17 09:38> - Respiratory Orders Smoking Cessation: Smoking cessation has been advised. For more information, call the [place] Tobacco Quit Line at 7-636-YMDENOW. CERTIFICATION: I certify that the transfer of the above named patient to an Extended Care Facility is necessary for the continuing treatment of the diagnosis listed. The above information is true and accurate reflection of patient's current condition. Confidential - Redisclosure prohibited without a patient's written consent.
--- NOTE | 2017-09-20 08:32 | History & Physical Report ---
Date of Encounter: 09/20/17 Time of Encounter: 08:31 24 Hour HP Update - Instructions Instructions: If the History and Physical is less than 30 days old and was completed prior to A.M. admission and or procedure and has NOT been updated on calendar day of procedure please complete this update prior to performing procedure. - Update Patient reports changes in Medical Condition: No Changes in examination, assessment, or condition: No Changes in Medication: No Preop tests/diagnostics Reviewed: Yes Surgery Remains Indicated: Yes Consent for Planned Operative Procedure(s) Verified: Yes - Pre-Operative Checklist Preoperative Checklist Indicated: No Prophylactic Antibiotic Ordered: Yes Is VTE Prophylaxis Indicated?: Yes
--- NOTE | 2017-09-20 08:46 | Anesthesia Evaluation PreOp ---
<Óscar Arana - Last Filed: 09/20/17 09:06> Date of Encounter: 09/20/17 Time of Encounter: 09:06 - Past History Planned Operation: Left TKA Cardiac History: HTN Pulmonary History: MEHDI Dx (noncompliant CPAP) POT FIREMAN History: Denies Any Significant HX Other Medical History: Other (MO: BMI 60) Anesthesia History: No Prior Anesthetic Complications Alcohol Use: none Drug use: none Medications and Allergies Valsartan/Hydrochlorothiazide [Diovan Hct 160-25 mg Tablet] 1 tab PO DAILY 05/19 [History] OxyCODONE Immed Rel [Roxicodone 5 MG] 5 mg PO Q6HR PRN 7 Days #28 tablet [Rx] Acetaminophen [Tylenol Arthritis] 1,300 mg PO Q8H PRN 09/20/17 [History] Aspirin Enteric Coated [Aspirin EC] 325 mg PO BID #20 tablet. 09/20/17 [Rx] 3 Allergy/AdvReac Type Severity Reaction Status Date / Time No Known Allergies Allergy Verified 09/20/17 09:09 - Meds/Allergy Pre-op Review Medications Reviewed: Yes Allergies Reviewed: Yes Beta Blockers on Current Med List: No Anesthesia Results - Labs Laboratory Tests 05/07/17 09/08/17 09/08/17 12:01 10:16 10:16 Hgb 14.8 Hct 45.3 Plt Count 286 PT 11.3 INR 1.1 Potassium Creatinine Glucose 166 H 09/08/17 10:16 Hgb Hct Plt Count PT INR Potassium 4.3 Creatinine 0.80 Glucose - Imaging EKG: pending Anesthesia Exam Vital Signs/O2 Sat/Glucose, Most Recent Temp Pulse Resp BP Pulse Ox 98.1 F 103 18 105/63 95 09/20/17 08:57 09/20/17 08:57 09/20/17 08:57 09/20/17 08:57 09/20/17 08:57 Height: 1.8m Weight: 190kg NPO (# of Hours): 8 Pain Scale: 0 Pain Scale Used: Numeric (1 - 10) - HEENT Pupil (Motor): Pupils equal Mallampati: II Teeth: Normal Oral Opening: Greater than 3 - POT FIREMAN LOC: Oriented POT FIREMAN Motor: Normal RUE, Normal LUE, Normal RLE, Normal LLE, Normal Face POT FIREMAN Sensory: Normal: RUE, LUE, RLE, LLE, Face - Cardiac Rhythm: Regular Murmur: None JVD: No Carotid Bruit: No - Pulmonary Breath Sounds: bilateral Clear Respiratory Effort: Symmetrical Anesthesia Assess/Plan ASA Score: 3 Modified Mirela Scale for Level of Consciousness: Cooperative, oriented, and tranquil Anesthetic Plan: Regional (spinal/PNBs), MAC Autologous Blood: No Monitoring Plan: Standard Monitors Recovery Plan: PACU <Jay Bradshaw - Last Filed: 09/20/17 09:40> Date of Encounter: 09/20/17 Anesthesia Results - Imaging EKG: image reviewed (SR, Poss old Inf. AL) Anesthesia Exam NPO (# of Hours): > 8 hrs - POT FIREMAN POT FIREMAN Motor: Normal RUE, Normal LUE, Normal RLE, Normal LLE, Normal Face POT FIREMAN Sensory: Normal: RUE, LUE, RLE, LLE, Face - Pulmonary Breath Sounds: bilateral Clear
[2017-09-20] MEDS ORDERED: *HR* Ropivacaine/PF 0.5% 20 ML VIAL ONE (09:06)
[2017-09-20] MEDS ORDERED: *HR* Morphine Sulfate/PF 10 MG/10 ML AMPUL ONE (09:06)
[2017-09-20] MEDS ORDERED: Bupivacaine-MPF 0.25% 10 ML VIAL ONE (09:07)
[2017-09-20] MEDS ORDERED: CeFAZolin Syr 3,000MG/30 ML 3,000 MG/30 ML SYRINGE IVPB ONE (09:11)
[2017-09-20] MEDS ORDERED: Ringers Solution, Lactated 1,000 ML IVC SCH (09:15)
[2017-09-20] MEDS ORDERED: Propofol 500 MG/50 ML INFUS..BTL ONE ×2 (10:28→10:57)
[2017-09-20] MEDS ORDERED: *HR* Midazolam HCl 2 MG/2 ML VIAL ONE ×2 (10:31→16:29)
[2017-09-20] MEDS ORDERED: Ondansetron 4 MG/2 ML VIAL IVP PRN ×2 (10:48→13:15)
--- NOTE | 2017-09-20 10:54 | Anesthesia Procedures ---
Date of Encounter: 09/20/17 Time of Encounter: 10:18 Procedures: Anesthesia - Epidural/Spinal Patient ID/Chart reviewed: Yes Patient examined: Yes Consent Obtained: Yes Supplemental Oxygen: Nasal Cannula Supplemental Oxygen Rate (L/min): 2 Sedation: Versed (mg): 2 Sedation: Fentanyl (mcg): 100 Site Prep: Aseptic Technique, Sterile prep and drape, 0.5% Chlorhexidine/Alcohol Patient position: upright Local Anesthetic: Lidocaine 1% Amount of Local Anesthetic used: 3 Blood: No CSF: Yes Paresthesia: No Spinal Needle Gauge: 22 Spinal Dose: 2.5mL 0.5% bupivacaine + 200mcg duramorph Vitals + FHT's: Vital Signs/O2 Sat/Glucose, Most Recent Temp Pulse Resp BP Pulse Ox 98.1 F 106 22 90/82 98 09/20/17 08:57 09/20/17 10:25 09/20/17 10:25 09/20/17 10:25 09/20/17 10:25
[2017-09-20] MEDS ORDERED: Lidocaine -MPF 2% 2 ML VIAL ONE (10:59)
--- NOTE | 2017-09-20 11:00 | Anesthesia Procedures ---
Date of Encounter: 09/20/17 Time of Encounter: 10:24 Procedures: Anesthesia - Nerve Block Procedure Date: 09/20/17 Time: 10:24 Allergies/Adv Reactions: nka Pre-op Diagnosis: left knee OA Surgical Procedure: left TKA robotic Checklist: Correct Patient Identifier, Correct procedure, History checked Correct side: Left Blood Thinner: No Monitor Applied: EKG, BP, Pulse Oximetry Supplemental Oxygen via Nasal Cannula (L/min): 2 Indication: Post Op Analgesia Pre-op Neuro Deficits: No Block Type: Femoral (unable to visualize adductor canal, decided to perform FNB) , Other (ipack) Catheter placed: No Sterile Technique: Yes Ultrasound used: Yes Anatomy identified: Yes Visual spread of Local: Yes Neuro Stimulation: Yes Nerve Stimulator Range: 0.2 - 0.4 mA Blood on Needle Aspiration: No Smooth Injection of Local: Yes Pain with Injection of Local: No Prep: Chlorhexadine Needle: 21 x 100 mm Stimuplex Local: Ropivacaine (0.5%), Other (decadron 8mg / 8mg) Volume (cc): 40 Number of Attempts: 1 Complications: None/effective block Vitals: Vital Signs/O2 Sat/Glucose, Most Recent Temp Pulse Resp BP Pulse Ox 98.1 F 106 22 90/82 98 09/20/17 08:57 09/20/17 10:25 09/20/17 10:25 09/20/17 10:25 09/20/17 10:25
[2017-09-20] MEDS ORDERED: *HR* PHENYLEPHRINE 1,000 MCG/10 ML SYRINGE IVP ONE ×2 (11:03→11:30)
[2017-09-20] MEDS ORDERED: *HR* Propofol 200 MG/20 ML VIAL IVP ONE (11:27)
--- NOTE | 2017-09-20 11:36 | Orthopedic Operative Note ---
Date of procedure: 09/20/17 Pre-op diagnosis: Left knee arthritis Post-op diagnosis: same (Morbid obesity) Procedure: Procedure: Left robotic-assisted Total knee replacement Estimated blood loss: 200 cc Hardware: Metal and polyethylene replacement. Tornado Femur: 5 Tibia 6: TS insert: 11 Patella: 39 Exam Under anesthesia: Loss of full extension 9 degrees varus 5 degrees as calculated by the robot full flexion and no instability Procedural Notes: Patient noted to have grade 3 changes medial lateral compartments grade 4 changes patellofemoral joint. Operative procedure: The patient was brought to the operating room and placed on the operating room table. After general anesthesia was administered the operative knee was examined. Findings were noted in the exam under anesthesia. The operative extremity was prepped and draped in sterile surgical fashion. The patient received IV antibiotics prior to skin incision. A standard midline incision was made centered over the patella. The incision was made through the skin and subcutaneous tissue. A medial parapatellar tendon approach was performed. Care was taken to preserve tissue along the medial aspect of the patella. And to protect the patella tendon. The deep MCL was released off the medial tibia. The infra patella fat pad was excised. The patella was everted and cut was made at the level of the insertion of the quadriceps and patella tendon. The patella was sized to 39 the guide was seated and the lug holes are drilled. Knee was brought into flexion. Patient noted to have grade 3 changes medial and lateral compartments grade 4 changes patellofemoral joint. Steinmann pins were placed in the tibia and the femur for the tibial and femoral arrays respectively. Checkpoints were also placed in the tibia and the femur for calculation purposes. The knee including the femur and the tibial registered. Osteophytes, ACL and PCL were excised at this point. Extension and flexion were assessed with a valgus stress components were adjusted on the computer to balance the knee. Femoral cuts were made first with robotic assistance, these included the anterior cut posterior cuts chamfer cuts. Tibial cut was then performed with robotic assistance as well. Bone fragments were removed, as well as the medial and lateral meniscus. The size 5 femoral guide was seated box cut was made lug holes are drilled. The size 6 tibial tray was seated and prepared with the fin cutter. Trial reduction with the 11 TS Veronica revealed extension of 0 degree 1 degree varus and full flexion. No varus valgus instability. Trial reduction revealed excellent patella tracking. All trial components were removed all bony surfaces were irrigated. The Tibia was seated followed by the femur, The Veronica size 11 was seated and secured patella. Patient had similar findings for motion and stability. The knee was closed by the PA. The knee was then irrigated out with 2 L of pulse irrigation. The extensor mechanism was closed with #2 FiberWire suture and #2 PDS suture. The subcutaneous tissue was then irrigated and closed deep with #1 PDS suture superficially with 0 PDS suture and skin was closed with zip tie The patient was then placed in a sterile dressing and a postoperative brace extubated and transferred to recovery room in stable condition. Anesthesia: spinal Surgeon: Han Ibarra Was there an business office assistant present: No Estimated blood loss (cc): 200 Condition: stable Disposition: PACU
[2017-09-20] MEDS ORDERED: *HR* Meperidine 25 MG/ML SYRINGE ONE (12:15)
--- NOTE | 2017-09-20 12:49 | Anesthesia Evaluation Post Op ---
Date of Encounter: 09/20/17 Time of Encounter: 12:48 - Vital Signs Vital Signs: Vital Signs/O2 Sat, Most Current Temp Pulse Resp BP Pulse Ox 99.0 F 93 14 116/74 99 09/20/17 12:42 09/20/17 12:42 09/20/17 12:42 09/20/17 12:42 09/20/17 12:42 - Lungs Lungs: Clear Ascult./Percussion - Airway Airway: Non-obstructed - Cardiovascular Regular Rate - Mental Status Mental Status: Alert & Oriented, Answers Appropriately - Pain Pain Scale: 0 Pain Scale used: Numeric (1 - 10) - Nausea Vomiting Nausea Vomiting: Not Present - Hydration Hydration: Ice chips, Has not voided - Discharge PostOp Status: Transfer Patient to floor
[2017-09-20] MEDS ORDERED: Sennosides 8.6 MG TABLET PO PRN (13:15)
[2017-09-20] MEDS ORDERED: MOM Conc 10 ML UD.LIQ PO PRN (13:15)
[2017-09-20] MEDS ORDERED: *HR* OxyCODONE Immed Rel 5 MG TABLET PO PRN (13:15)
[2017-09-20] MEDS ORDERED: Naloxone 0.4 MG/ML INJ IVP PRN (13:15)
[2017-09-20] MEDS ORDERED: Temazepam 15 MG CAPSULE PO PRN (13:15)
[2017-09-20 13:58] LABS: Hematocrit 44.3 % (37.5-50.1); Hemoglobin 14.1 g/dL (12.9-16.9)
[2017-09-20] MEDS: Ringers Solution, Lactated 1,000 ML IVC SCH ×2 (15:36→19:23)
[2017-09-20] MEDS ORDERED: *HR* FentaNYL (PF) 100 MCG/2 ML VIAL ONE (16:29)
[2017-09-20] MEDS ORDERED: *HR* Enoxaparin 30 MG/0.3 ML SYRINGE SQ SCH (18:00)
[2017-09-20] MEDS: CeFAZolin Syr 3,000MG/30 ML 3,000 MG/30 ML SYRINGE IVPB SCH (19:10)
[2017-09-20] MEDS: *HR* Enoxaparin 30 MG/0.3 ML SYRINGE SQ SCH (19:21)
[2017-09-20] MEDS: *HR* OxyCODONE Immed Rel 5 MG TABLET PO PRN (20:05)
[2017-09-21] MEDS: *HR* OxyCODONE Immed Rel 5 MG TABLET PO PRN ×6 (00:28→21:28)
[2017-09-21] MEDS: CeFAZolin Syr 3,000MG/30 ML 3,000 MG/30 ML SYRINGE IVPB SCH (01:09)
[2017-09-21 05:03] LABS: Hemoglobin 13.6 g/dL (12.9-16.9)
[2017-09-21] MEDS: *HR* Enoxaparin 30 MG/0.3 ML SYRINGE SQ SCH ×2 (06:13→16:34)
--- NOTE | 2017-09-21 06:18 | Orthopedics Progress Note ---
Date of Encounter: 09/21/17 Time of Encounter: 06:17 - Assessment and Plan (1) Arthritis of knee, left Current Visit: No Status: Chronic (2) Status post total knee replacement, left Current Visit: No Status: Acute (3) Essential hypertension Current Visit: No Status: Chronic (4) Morbid obesity due to excess calories Current Visit: No Status: Chronic (5) Obstructive sleep apnea Current Visit: No Status: Chronic Subjective Interval history: Patient was seen this morning doing well without complaints. Afebrile vital signs stable. Operative extremity: Neurovascularly intact Dressing bloody changed today Calves nontender Assessment and plan: Continue with postoperative care Hematocrit 43 Objective Vital signs: Vital Signs Temp Pulse Resp BP Pulse Ox 09/21/17 03:39 97.8 F 103 19 121/77 98 09/21/17 00:00 97.7 F 100 18 120/75 98 09/20/17 19:41 97.6 F 108 18 117/76 98 09/20/17 17:26 97.9 F 116 16 125/77 95 09/20/17 16:02 100.5 F H 115 15 125/75 91 09/20/17 14:54 98.2 F 117 20 117/72 93 09/20/17 14:11 93 09/20/17 14:00 99.0 F 112 16 128/75 92 09/20/17 13:31 98.7 F 108 16 115/75 09/20/17 13:30 98.7 F 108 16 115/75 93 09/20/17 12:42 99.0 F 93 14 116/74 99 09/20/17 12:32 93 14 117/75 98 09/20/17 12:22 95 14 120/77 96 09/20/17 12:12 97.6 F 94 18 122/77 99 09/20/17 10:25 106 22 90/82 98 09/20/17 10:22 107 22 114/66 99 09/20/17 10:19 110 22 113/65 98 09/20/17 10:16 110 22 115/78 99 09/20/17 10:13 110 22 122/95 98 09/20/17 09:55 101 22 125/89 98 09/20/17 08:57 98.1 F 103 18 105/63 95 Intake and Output 09/20/17 09/20/17 09/21/17 15:59 23:59 07:59 Intake Total 30 3270 / 3270 1100 / 1100 Output Total 200 / 200 250 / 250 Balance -170 / -170 3270 / 3270 850 / 850 Intake: IV Fluids 1030 / 1030 Lactated Ringers 1,000 ML @ 75 1000 / 1000 mls/hr IVC .[id number] [facility] Rx#: [id number] Ancef Syringe 3,000 MG/30 ML 3, 30 30 / 30 000 mg In 30 ml @ 200 mls/hr IVPB Q8HR [facility] Rx#:[id number] Oral 2240 / 2240 1100 / 1100 Output: Urine 250 / 250 Estimated Blood Loss 200 / 200 Other: Meal Dinner Percent of Meal Consumed 95% Weight 189.602 kg - Labs CBC & BMP: 09/21/17 04:24 - VTE Documentation of Mechanical Device: Venous foot pump, device Consult Discharge Plan - Plan Referrals: Amol Han DO [Primary Care Provider] -
[2017-09-21 07:06] LABS: BUN/Creatinine Ratio 21 (6-26); Blood Urea Nitrogen 18 mg/dL (6-20); Calcium 10.4 mg/dL (8.6-10.3); Carbon Dioxide 26 mEq/L (23-29); Chloride 99 mEq/L (98-107); Glucose 146 mg/dL (70-105); Osmolality,Calculated 281 (280-300); Potassium 4.1 mEq/L (3.5-5.1); Sodium 133 mEq/L (136-145); eGFR For African Americans > 60 (> 60); eGFR For Non-African Americans > 60 (> 60)
[2017-09-21] MEDS: Valsartan 160 MG TABLET PO SCH (08:13)
[2017-09-21] MEDS: hydroCHLOROthiazide 25 MG TABLET PO SCH (08:13)
--- NOTE | 2017-09-21 11:36 | Event Note ---
Date of Encounter: 09/20/17 Time of Encounter: 16:30 Called to floor by nursing stating saturated dressing. Dressings taken down. Active bleeding noted to distal 1/3 incision. Zipline removed. Incision cleansed with alcohol. Robeline placed achieving stasis. Zipline placed. Incision cleansed with iodine. Honeycomb placed. 4x4 pack and 2 ABDs and Acewrap applied. Ice pack applied. Patient's foot pumps replaced. Patient tolerated well.
[2017-09-21] MEDS ORDERED: Acetaminophen 325 MG TABLET PO PRN (16:00)
--- NOTE | 2017-09-21 20:08 | Electrocardiograph Report ---
[place] [employer] Test Date: 2017-09-20 Pat Name: Jay Paige Department: 101 Room: [facility] Gender: M Credit Control Assistant: RUBI : [id number] Requested By: Óscar Arana Order Number: [id number] Reading MD: Daniel Packer DO Measurements Intervals Backus Rate: 93 P: 10 AR: 191 QRS: 16 QRSD: 98 T: 5 QT: 330 QTc: 380 Interpretive Statements SINUS RHYTHM INFERIOR MYOCARDIAL INFARCTION, PROBABLY OLD Electronically Signed On 09-21-2017 20:07:18 EST by Daniel Packer DO
[2017-09-21] MEDS: Gabapentin 300 MG CAPSULE PO SCH (22:15)
[2017-09-22] MEDS: *HR* OxyCODONE Immed Rel 5 MG TABLET PO PRN ×3 (01:12→09:25)
[2017-09-22 01:13] LABS: Hematocrit 38.4 % (37.5-50.1); Hemoglobin 12.8 g/dL (12.9-16.9)
[2017-09-22 02:30] LABS: BUN/Creatinine Ratio 26 (6-26); Blood Urea Nitrogen 21 mg/dL (6-20); Calcium 10.4 mg/dL (8.6-10.3); Carbon Dioxide 25 mEq/L (23-29); Chloride 100 mEq/L (98-107); Glucose 173 mg/dL (70-105); Osmolality,Calculated 283 (280-300); Potassium 3.6 mEq/L (3.5-5.1); Sodium 133 mEq/L (136-145); eGFR For African Americans > 60 (> 60); eGFR For Non-African Americans > 60 (> 60)
--- NOTE | 2017-09-22 06:40 | Orthopedics Progress Note ---
Date of Encounter: 09/22/17 Time of Encounter: 06:39 - Assessment and Plan (1) Arthritis of knee, left Current Visit: No Status: Chronic (2) Status post total knee replacement, left Current Visit: No Status: Acute (3) Essential hypertension Current Visit: No Status: Chronic (4) Morbid obesity due to excess calories Current Visit: No Status: Chronic (5) Obstructive sleep apnea Current Visit: No Status: Chronic Subjective Interval history: Patient was seen this morning doing well without complaints. Afebrile vital signs stable. Operative extremity: Neurovascularly intact Dressing clean dry and intact Calves nontender Assessment and plan: Continue with postoperative care Hematocrit 38 discharge today Objective Vital signs: Vital Signs Temp Pulse Resp BP Pulse Ox 09/21/17 23:49 98.9 F 114 16 117/81 95 09/21/17 20:48 98.0 F 109 16 105/66 95 09/21/17 15:11 98.3 F 115 20 124/79 95 09/21/17 11:09 97.9 F 103 18 118/74 93 09/21/17 09:20 95 Intake and Output 09/21/17 09/21/17 09/22/17 15:59 23:59 07:59 Intake Total 480 / 480 240 / 240 800 / 800 Output Total 550 / 550 300 / 300 Balance -70 / -70 -60 / -60 800 / 800 Intake: Oral 480 / 480 240 / 240 800 / 800 Output: Urine 550 / 550 300 / 300 Other: Meal Lunch Dinner Percent of Meal Consumed 100% 100% # Voids 1 1 Weight 190.055 kg - Labs CBC & BMP: 09/22/17 00:58 09/22/17 01:33 Labs: Abnormal lab results Hgb 12.8 g/dL (12.9-16.9) L 09/22/17 00:58 Sodium 133 mEq/L (136-145) L 09/22/17 01:33 BUN 21 mg/dL (6-20) H 09/22/17 01:33 Glucose 173 mg/dL (70-105) H 09/22/17 01:33 Calcium 10.4 mg/dL (8.6-10.3) H 09/22/17 01:33 - VTE Documentation of Mechanical Device: Venous foot pump, device Consult Discharge Plan - Plan Referrals: Amol Han DO [Primary Care Provider] -
[2017-09-22] MEDS: *HR* Enoxaparin 30 MG/0.3 ML SYRINGE SQ SCH (06:44)
[2017-09-22 06:55] VITALS: BP 137/68
[2017-09-22] MEDS: hydroCHLOROthiazide 25 MG TABLET PO SCH (07:32)
[2017-09-22] MEDS: Gabapentin 300 MG CAPSULE PO SCH (07:32)
[2017-09-22] MEDS: Valsartan 160 MG TABLET PO SCH (07:32)
--- NOTE | 2017-09-22 12:06 | Event Note ---
Date of Encounter: 09/21/17 Time of Encounter: 12:05 PCR- POD#1 L TKR robotic 09/20/17 Fred PCR - Patient seen at bedside. Pain control: Adequate Participating in PT. All questions and concerns addressed. Educated on use of incentive spirometer, ambulation, and hydration. Patient educated on post-operative restrictions and care. Addressed: bleeding - more abby placed after cleansing with alcohol. Cleansed with betadine. Immobilize x24 hours to help control bleeding. Patient asking for Lasix for swelling - will hold any diuretic at this time as do not believe necessary. Educated patient on foot motion and elevation. Verbalized understanding. D/C plan: [facility] - awaiting auth
== END 2017-09-22 12:11 | DRG 470 ==
LOC: SAMDAY 08:36 → 3NENU 13:03
PROVIDERS: ADMIT Orthopaedic Surgery; ATTEND Orthopaedic Surgery

== ENCOUNTER 2018-09-04 10:12 | Inpatient (IN) ==
[2018-09-04] MEDS ORDERED: 0.9 % Sodium Chloride 1,000 ML IVC ONE ×2 (10:44→13:43)
--- NOTE | 2018-09-04 10:45 | Emergency Department Note ---
Disposition Clinical Impression: Swelling of lower extremity Sepsis Qualifiers: Sepsis type: sepsis due to unspecified organism Qualified Code(s): A41.9 - Sepsis, unspecified organism Disposition: Admitted As Inpatient Condition: Good Time of Disposition: 13:29 General Adult HPI - General Chief complaint: ED Dizziness Stated complaint: dizziness Time Seen by Provider: 09/04/18 10:15 Source: patient Mode of arrival: private vehicle Limitations: no limitations Nursing Notes Reviewed: Yes Vital Signs Reviewed: Yes - History of Present Illness HPI Narrative: Pt is a 48M with PmHx HTN, HLPD, and multiple admissions for cellulitis presenting with <24 hours of a nonproductive cough, chills, dizziness that came on yesterday afternoon. He has a history of left extremity cellulitis causing sepsis with admission, as well as multiple orthopedic surgeries on both knees. Pt is also endorsing some diarrhea, ROS was otherwise negative. Pt was found to be hyperthermic at 103F, pulse 118, RR 24 in triage. Pain Scale: 3 - Related Data Home Medications Medication Instructions Recorded Confirmed Valsartan/Hydrochlorothiazide 1 tab PO DAILY 05/19/17 09/20/17 [Diovan Hct 160-25 mg Tablet] Acetaminophen [Tylenol Arthritis] 1,300 mg PO Q8H PRN 09/20/17 09/20/17 Previous Rx's Medication Instructions Recorded OxyCODONE Immed Rel [Roxicodone 5 5 mg PO Q6HR PRN 7 Days #28 tablet 09/19/17 MG] Aspirin Enteric Coated [Aspirin EC] 325 mg PO BID #20 tablet. 09/20/17 Allergies Allergy/AdvReac Type Severity Reaction Status Date / Time No Known Allergies Allergy Verified 09/20/17 09:09 All systems ED: reviewed and negative except as stated. Constitutional: Reports: chills. Denies: fever ENT ED: Reports: ear pain (right ear, was dx with "fluid on the ear" on ) Cardiovascular: Denies: chest pain, palpitations Respiratory: Reports: cough (non productive since yesterday) Gastrointestinal: Reports: diarrhea. Denies: abdominal pain, nausea, vomiting, constipation Genitourinary: Denies: urgency, dysuria Musculoskeletal: Denies: back pain Neurological: Reports: other (dizziness). Denies: headache Past Medical History - Past Medical History Medical history: Reports: hypertension Surgical history: Reports: other Psychiatric history: Reports: no psych history - Social History Smoking Status: Never smoker Smokeless Tobacco Status: No Alcohol use: Reports: none Drug use: Reports: none Physical Exam - General Limitations: no limitations General appearance: alert - Head Head exam: atraumatic, normocephalic - Eye Eye exam: Present: normal appearance, PERRL - ENT ENT exam: normal exam, normal oropharynx, mucous membranes moist - Neck Neck exam: Present: normal inspection, full ROM - Chest Chest inspection: Present: normal inspection, symmetric chest wall rise - Respiratory Respiratory exam: Present: normal lung sounds bilaterally. Absent: respiratory distress, wheezes - Cardiovascular Cardiovascular exam: Present: regular rate, normal rhythm - Abdominal Exam Abdominal exam: Present: soft, Non-Tender - Expanded Lower Extremity Exam Lower leg exam: Present: swelling (noreen 2-3+ pitting edema, extending to but not above knee), erythema, other (left more swollen than right, left warmer when compared to right) - Back Exam Back exam: Present: normal inspection, full ROM - Neurological Exam Neurological exam: Present: alert - Psychiatric Psychiatric exam: Present: normal affect, normal mood - Skin Skin exam: Present: warm, dry, intact Course Course Narrative: Pt has 3/4 SIRS criteria, with sudden onset, suspect it may be influenza, will swab. Additionally, pt has had multiple bouts of cellulitis in the left leg with concerning physical exam findings, will get lower extremity doppler to r/o DVT. Will get screening labs, CXR, EKG. - Reevaluation(s) Reevaluation #1: Pts temperature was 100 on recheck Time: 13:00 Reevaluation #2: Spoke with Dr Nugent, hospitalist, who agrees to accept the patient. Time: 13:28 Vital Signs Temperature 103 F H 09/04/18 10:18 Pulse Rate 118 09/04/18 10:18 Respiratory Rate 24 09/04/18 10:18 Blood Pressure 117/54 09/04/18 10:18 O2 Sat by Pulse Oximetry 97 09/04/18 10:18 Temperature 103 F H 09/04/18 10:18 Pulse Rate 118 09/04/18 10:18 Respiratory Rate 24 09/04/18 10:18 Blood Pressure 117/54 09/04/18 10:18 O2 Sat by Pulse Oximetry 98 09/04/18 12:57 Oxygen Delivery Oxygen Delivery Room Air Medical Decision Making - MDM Narrative Medical decision making narrative: Pt's initial vitals were concerning for multiple SIRS criteria. Lab work did not show leukocytosis, but Lactic was 2.9. Initially DVT was considered, but doppler LE US did not visualize any clots in the extremity. Pt has a history of LE cellulitis, so his etiology was thought to be cellulitis. Pt was admitted to Dr. Nugent, hospitalist, who agreed to accept the pt. Pt verbalized understanding and agreement with the plan. Pt was given an opportunity to ask questions and all of his concerns were addressed. Pt remained hemodynamically stable while in the department. Temperature improved after administration of tylenol. Pt was given 1.4L of fluids while in the department - hydration was approached gently due to significant LE edema, despite no hx of CHF. - Medical Records Medical records reviewed: Yes I reviewed the patient's medical records. - Lab Data Lab results reviewed: Yes I reviewed the patient's lab results. Result diagrams: 09/04/18 11:16 09/04/18 11:16 Lab Results 09/04/18 09/04/18 09/04/18 Range/Units 11:16 11:16 11:16 WBC 9.2 (4.3-11.1) K/mcL RBC 5.00 (4.19-5.50) M/mcL Hgb 13.6 (12.9-16.9) g/dL Hct 41.6 (37.5-50.1) % MCV 83.2 (83.0-100.0) fL MCH 27.2 L (28.0-33.3) pg MCHC 32.7 (31.6-35.5) g/dL RDW 14.9 H (11.5-14.5) % Plt Count 224 (140-400) K/mcL MPV 10.0 (9.4-12.4) fL Immature Gran % 0.5 (0-4) % Seg Neutrophils % 87.2 % Lymphocytes % 4.9 % Monocytes % 7.1 % Eosinophils % 0.0 % Basophils % 0.3 % Neutrophils # 8.0 (1.6-8.9) K/mcL Lymphocytes # 0.5 L (0.6-4.6) K/mcL Monocytes # 0.7 (0.0-1.3) K/mcL Eosinophils # 0.0 (0.0-0.6) K/mcL Basophils # 0.0 (0.0-0.2) K/mcL Sodium 135 L (136-145) mEq/L Potassium 3.7 (3.5-5.1) mEq/L Chloride 100 (98-107) mEq/L Carbon Dioxide 26 (23-29) mEq/L BUN 15 (6-20) mg/dL Creatinine 1.18 (0.70-1.30) mg/dL Est GFR ( Amer) > 60 (> 60) Est GFR (Non-Af Amer) > 60 (> 60) BUN/Creatinine Ratio 13 (6-26) Glucose 124 H (70-105) mg/dL Calculated Osmolality 282 (280-300) Lactic Acid 2.9 H (0.5-2.2) mmol/L Calcium 9.9 (8.6-10.3) mg/dL Phosphorus 1.7 L (2.7-4.5) mg/dL Magnesium 1.4 L (1.6-2.6) mg/dL Total Bilirubin 0.5 (0.3-1.0) mg/dL Direct Bilirubin 0.1 (0.0-0.2) mg/dL Indirect Bilirubin 0.4 (0.0-1.2) mg/dL AST 16 (13-39) Units/L ALT 24 (7-52) Units/L Alkaline Phosphatase 79 (34-104) Units/L Serum Total Protein 6.5 (6.4-8.9) g/dL Albumin 4.0 (3.5-5.7) g/dL Globulin 2.5 (2.4-3.5) g/dL Albumin/Globulin Ratio 1.6 (1.1-2.2) Urine Color (Yellow) Urine Clarity (Clear) Urine pH (5.0-8.0) pH Units Ur Specific Dunnigan (1.010-1.025) Urine Protein (Neg-Trace) mg/dL Urine Glucose (UA) (Normal) mg/dL Urine Ketones (Negative) mg/dL Urine Blood (Negative) Urine Nitrite (Negative) Urine Bilirubin (Negative) Urine Urobilinogen (Normal) mg/dL Ur Leukocyte Esterase (Negative) Urine Microscopic RBC (0-3) per hpf Urine Microscopic WBC (0-3) per hpf Ur Squamous Epith Cells (None-Few) per lpf Urine Bacteria (None-Few) per hpf Hyaline Casts (None-Few) per lpf Ur Culture Indicated? (NO) 09/04/18 Range/Units 11:55 WBC (4.3-11.1) K/mcL RBC (4.19-5.50) M/mcL Hgb (12.9-16.9) g/dL Hct (37.5-50.1) % MCV (83.0-100.0) fL MCH (28.0-33.3) pg MCHC (31.6-35.5) g/dL RDW (11.5-14.5) % Plt Count (140-400) K/mcL MPV (9.4-12.4) fL Immature Gran % (0-4) % Seg Neutrophils % % Lymphocytes % % Monocytes % % Eosinophils % % Basophils % % Neutrophils # (1.6-8.9) K/mcL Lymphocytes # (0.6-4.6) K/mcL Monocytes # (0.0-1.3) K/mcL Eosinophils # (0.0-0.6) K/mcL Basophils # (0.0-0.2) K/mcL Sodium (136-145) mEq/L Potassium (3.5-5.1) mEq/L Chloride (98-107) mEq/L Carbon Dioxide (23-29) mEq/L BUN (6-20) mg/dL Creatinine (0.70-1.30) mg/dL Est GFR ( Amer) (> 60) Est GFR (Non-Af Amer) (> 60) BUN/Creatinine Ratio (6-26) Glucose (70-105) mg/dL Calculated Osmolality (280-300) Lactic Acid (0.5-2.2) mmol/L Calcium (8.6-10.3) mg/dL Phosphorus (2.7-4.5) mg/dL Magnesium (1.6-2.6) mg/dL Total Bilirubin (0.3-1.0) mg/dL Direct Bilirubin (0.0-0.2) mg/dL Indirect Bilirubin (0.0-1.2) mg/dL AST (13-39) Units/L ALT (7-52) Units/L Alkaline Phosphatase (34-104) Units/L Serum Total Protein (6.4-8.9) g/dL Albumin (3.5-5.7) g/dL Globulin (2.4-3.5) g/dL Albumin/Globulin Ratio (1.1-2.2) Urine Color Dark Yellow (Yellow) Urine Clarity Clear (Clear) Urine pH 5.5 (5.0-8.0) pH Units Ur Specific Dunnigan 1.023 (1.010-1.025) Urine Protein 30 H (Neg-Trace) mg/dL Urine Glucose (UA) Normal (Normal) mg/dL Urine Ketones Trace H (Negative) mg/dL Urine Blood Negative (Negative) Urine Nitrite Negative (Negative) Urine Bilirubin Negative (Negative) Urine Urobilinogen Normal (Normal) mg/dL Ur Leukocyte Esterase Negative (Negative) Urine Microscopic RBC 3-5 H (0-3) per hpf Urine Microscopic WBC 0-3 (0-3) per hpf Ur Squamous Epith Cells Moderate H (None-Few) per lpf Urine Bacteria None Seen (None-Few) per hpf Hyaline Casts Few (None-Few) per lpf Ur Culture Indicated? NO (NO) - Radiology Data Radiology results reviewed: Yes I reviewed the patient's radiology results. Chest X-Ray 09/04/18 10:44 IMPRESSION: No acute process. D/ / Baljinder Elam MD / Baljinder Elam MD Interpreting Provider: Baljinder Elam MD - EKG Data EKG #1 EKG attestation: Yes I reviewed and interpreted this EKG. EKG results narrative: HR 113, rhythm sinus tachycardia, axis normal at 64. TN 202 and mildly prolonged, QRS 98, QTc 414. No ST elevation or depression. No evidence of LVH.
[2018-09-04 11:35] LABS: Basophils % 0.3 %; Hematocrit 41.6 % (37.5-50.1); Hemoglobin 13.6 g/dL (12.9-16.9); Immature Granulocytes % 0.5 % (0-4); Lymphocytes # 0.5 K/mcL (0.6-4.6); Lymphocytes % 4.9 %; Mean Corpuscular HGB Conc 32.7 g/dL (31.6-35.5); Mean Corpuscular Hemoglobin 27.2 pg (28.0-33.3); Mean Corpuscular Volume 83.2 fL (83.0-100.0); Monocytes # 0.7 K/mcL (0.0-1.3); Monocytes % 7.1 %; Platelet Count 224 K/mcL (140-400); Red Cell Distribution Width 14.9 % (11.5-14.5); Segmented Neutrophils % 87.2 %
--- NOTE | 2018-09-04 11:45 | Emergency Department Note ---
Disposition Clinical Impression: Sepsis, Swelling of lower extremity Disposition: Admitted As Inpatient Condition: Good Referrals: Amol Han DO [Primary Care Provider] - Forms: ED Satisfaction Letter General Adult HPI - General Chief complaint: ED Dizziness Stated complaint: dizziness Time Seen by Provider: 09/04/18 10:15 Source: patient Mode of arrival: private vehicle Limitations: no limitations Nursing Notes Reviewed: Yes Vital Signs Reviewed: Yes - History of Present Illness Pain Scale: 3 - Related Data Home Medications Medication Instructions Recorded Confirmed Valsartan/Hydrochlorothiazide 1 tab PO DAILY 05/19/17 09/20/17 [Diovan Hct 160-25 mg Tablet] Acetaminophen [Tylenol Arthritis] 1,300 mg PO Q8H PRN 09/20/17 09/20/17 Previous Rx's Medication Instructions Recorded OxyCODONE Immed Rel [Roxicodone 5 5 mg PO Q6HR PRN 7 Days #28 tablet 09/19/17 MG] Aspirin Enteric Coated [Aspirin EC] 325 mg PO BID #20 tablet. 09/20/17 Allergies Allergy/AdvReac Type Severity Reaction Status Date / Time No Known Allergies Allergy Verified 09/20/17 09:09 Constitutional: Reports: chills. Denies: fever ENT ED: Reports: ear pain (right ear, was dx with "fluid on the ear" on T hursday) Cardiovascular: Denies: chest pain, palpitations Respiratory: Reports: cough (non productive since yesterday) Gastrointestinal: Reports: diarrhea. Denies: abdominal pain, nausea, vomiting, constipation Genitourinary: Denies: urgency, dysuria Musculoskeletal: Denies: back pain Neurological: Reports: other (dizziness). Denies: headache Past Medical History - Past Medical History Medical history: Reports: hypertension Surgical history: Reports: other Psychiatric history: Reports: no psych history - Social History Smoking Status: Never smoker Smokeless Tobacco Status: No Alcohol use: Reports: none Drug use: Reports: none Physical Exam - General Limitations: no limitations General appearance: alert Course Vital Signs Temperature 103 F H 09/04/18 10:18 Pulse Rate 118 09/04/18 10:18 Respiratory Rate 24 09/04/18 10:18 Blood Pressure 117/54 09/04/18 10:18 O2 Sat by Pulse Oximetry 97 09/04/18 10:18 Temperature 103 F H 02/10/19 10:18 Pulse Rate 106 09/04/18 13:50 Respiratory Rate 20 09/04/18 13:50 Blood Pressure 100/49 09/04/18 13:50 O2 Sat by Pulse Oximetry 100 09/04/18 13:50 Oxygen Delivery Oxygen Delivery Room Air Medical Decision Making - Lab Data Result diagrams: 09/04/18 11:16 09/04/18 11:16 Lab Results 09/04/18 09/04/18 09/04/18 Range/Units 11:16 11:16 11:16 WBC 9.2 (4.3-11.1) K/mcL RBC 5.00 (4.19-5.50) M/mcL Hgb 13.6 (12.9-16.9) g/dL Hct 41.6 (37.5-50.1) % MCV 83.2 (83.0-100.0) fL MCH 27.2 L (28.0-33.3) pg MCHC 32.7 (31.6-35.5) g/dL RDW 14.9 H (11.5-14.5) % Plt Count 224 (140-400) K/mcL MPV 10.0 (9.4-12.4) fL Immature Gran % 0.5 (0-4) % Seg Neutrophils % 87.2 % Lymphocytes % 4.9 % Monocytes % 7.1 % Eosinophils % 0.0 % Basophils % 0.3 % Neutrophils # 8.0 (1.6-8.9) K/mcL Lymphocytes # 0.5 L (0.6-4.6) K/mcL Monocytes # 0.7 (0.0-1.3) K/mcL Eosinophils # 0.0 (0.0-0.6) K/mcL Basophils # 0.0 (0.0-0.2) K/mcL Sodium 135 L (136-145) mEq/L Potassium 3.7 (3.5-5.1) mEq/L Chloride 100 (98-107) mEq/L Carbon Dioxide 26 (23-29) mEq/L BUN 15 (6-20) mg/dL Creatinine 1.18 (0.70-1.30) mg/dL Est GFR ( Amer) > 60 (> 60) Est GFR (Non-Af Amer) > 60 (> 60) BUN/Creatinine Ratio 13 (6-26) Glucose 124 H (70-105) mg/dL Calculated Osmolality 282 (280-300) Lactic Acid 2.9 H (0.5-2.2) mmol/L Calcium 9.9 (8.6-10.3) mg/dL Phosphorus 1.7 L (2.7-4.5) mg/dL Magnesium 1.4 L (1.6-2.6) mg/dL Total Bilirubin 0.5 (0.3-1.0) mg/dL Direct Bilirubin 0.1 (0.0-0.2) mg/dL Indirect Bilirubin 0.4 (0.0-1.2) mg/dL AST 16 (13-39) Units/L ALT 24 (7-52) Units/L Alkaline Phosphatase 79 (34-104) Units/L Serum Total Protein 6.5 (6.4-8.9) g/dL Albumin 4.0 (3.5-5.7) g/dL Globulin 2.5 (2.4-3.5) g/dL Albumin/Globulin Ratio 1.6 (1.1-2.2) Urine Color (Yellow) Urine Clarity (Clear) Urine pH (5.0-8.0) pH Units Ur Specific [place] (1.010-1.025) Urine Protein (Neg-Trace) mg/dL Urine Glucose (UA) (Normal) mg/dL Urine Ketones (Negative) mg/dL Urine Blood (Negative) Urine Nitrite (Negative) Urine Bilirubin (Negative) Urine Urobilinogen (Normal) mg/dL Ur Leukocyte Esterase (Negative) Urine Microscopic RBC (0-3) per hpf Urine Microscopic WBC (0-3) per hpf Ur Squamous Epith Cells (None-Few) per lpf Urine Bacteria (None-Few) per hpf Hyaline Casts (None-Few) per lpf Ur Culture Indicated? (NO) 09/04/18 Range/Units 11:55 WBC (4.3-11.1) K/mcL RBC (4.19-5.50) M/mcL Hgb (12.9-16.9) g/dL Hct (37.5-50.1) % MCV (83.0-100.0) fL MCH (28.0-33.3) pg MCHC (31.6-35.5) g/dL RDW (11.5-14.5) % Plt Count (140-400) K/mcL MPV (9.4-12.4) fL Immature Gran % (0-4) % Seg Neutrophils % % Lymphocytes % % Monocytes % % Eosinophils % % Basophils % % Neutrophils # (1.6-8.9) K/mcL Lymphocytes # (0.6-4.6) K/mcL Monocytes # (0.0-1.3) K/mcL Eosinophils # (0.0-0.6) K/mcL Basophils # (0.0-0.2) K/mcL Sodium (136-145) mEq/L Potassium (3.5-5.1) mEq/L Chloride (98-107) mEq/L Carbon Dioxide (23-29) mEq/L BUN (6-20) mg/dL Creatinine (0.70-1.30) mg/dL Est GFR ( Amer) (> 60) Est GFR (Non-Af Amer) (> 60) BUN/Creatinine Ratio (6-26) Glucose (70-105) mg/dL Calculated Osmolality (280-300) Lactic Acid (0.5-2.2) mmol/L Calcium (8.6-10.3) mg/dL Phosphorus (2.7-4.5) mg/dL Magnesium (1.6-2.6) mg/dL Total Bilirubin (0.3-1.0) mg/dL Direct Bilirubin (0.0-0.2) mg/dL Indirect Bilirubin (0.0-1.2) mg/dL AST (13-39) Units/L ALT (7-52) Units/L Alkaline Phosphatase (34-104) Units/L Serum Total Protein (6.4-8.9) g/dL Albumin (3.5-5.7) g/dL Globulin (2.4-3.5) g/dL Albumin/Globulin Ratio (1.1-2.2) Urine Color Dark Yellow (Yellow) Urine Clarity Clear (Clear) Urine pH 5.5 (5.0-8.0) pH Units Ur Specific [place] 1.023 (1.010-1.025) Urine Protein 30 H (Neg-Trace) mg/dL Urine Glucose (UA) Normal (Normal) mg/dL Urine Ketones Trace H (Negative) mg/dL Urine Blood Negative (Negative) Urine Nitrite Negative (Negative) Urine Bilirubin Negative (Negative) Urine Urobilinogen Normal (Normal) mg/dL Ur Leukocyte Esterase Negative (Negative) Urine Microscopic RBC 3-5 H (0-3) per hpf Urine Microscopic WBC 0-3 (0-3) per hpf Ur Squamous Epith Cells Moderate H (None-Few) per lpf Urine Bacteria None Seen (None-Few) per hpf Hyaline Casts Few (None-Few) per lpf Ur Culture Indicated? NO (NO) Critical Care Time Critical Care Time: Yes Total Critical Care Time: 40 Attestation: Critical care performed: Time is exclusive of separately billable procedures. Time includes: direct patient care, patient reassessment, coordination of patient care, interpretation of data (laboratory data, radiology data, and respiratory data), review of patient's medical records, medical consultation and documentation of patient care. Procedures included in critical care time: Procedures excluded from critical care time: Attestation Statement - Attestation Attestation: I examined this patient and my medical decision-making was reviewed with the Resident Physician. I agree with the documented findings, disposition and treatment plan as described except to the extent set forth below. Patient presents to the emergency department with a chief complaint of fever and lightheadedness. Left leg swelling. Dry cough. Patient has a history of sepsis from cellulitis of the left leg a year ago. He states the leg is remains swollen since then. It is however now more warm. He has had a dry cough. He j ust does not feel well. On examination his left leg is larger than the right. It is warm to the touch on the marquez. No erythema. Unremarkable for exam. Lung sounds diminished but clear. He is noted to be coughing. Febrile 103. Plan. Febrile tachycardic. Septic workup. Ultrasound of left lower extremity. Likely admission. Patient feeling better. Temp improved. Only source found was the left leg. IV and Biaxin given and admitted to medicine. Chest X-Ray 09/04/18 10:44 IMPRESSION: No acute process. D/ / Baljinder Elam MD / Baljinder Elam MD Interpreting Provider: Baljinder Elam MD
[2018-09-04 11:50] LABS: Alanine Aminotransferase 24 Units/L (7-52); Albumin/Globulin Ratio 1.6 (1.1-2.2); Alkaline Phosphatase 79 Units/L (34-104); Aspartate Amino Transferase 16 Units/L (13-39); BUN/Creatinine Ratio 13 (6-26); Bilirubin,Direct 0.1 mg/dL (0.0-0.2); Bilirubin,Indirect 0.4 mg/dL (0.0-1.2); Bilirubin,Total 0.5 mg/dL (0.3-1.0); Blood Urea Nitrogen 15 mg/dL (6-20); Calcium 9.9 mg/dL (8.6-10.3); Carbon Dioxide 26 mEq/L (23-29); Chloride 100 mEq/L (98-107); Globulin 2.5 g/dL (2.4-3.5); Glucose 124 mg/dL (70-105); Magnesium 1.4 mg/dL (1.6-2.6); Osmolality,Calculated 282 (280-300); Phosphorous 1.7 mg/dL (2.7-4.5); Potassium 3.7 mEq/L (3.5-5.1); Sodium 135 mEq/L (136-145); Total Protein 6.5 g/dL (6.4-8.9); eGFR For Non-African Americans > 60 (> 60)
[2018-09-04] MEDS ORDERED: Piperacillin/Tazobactam 3.375 GM in 0.9 % Sodium Chloride Mini Bag 100 ML IVPB ONE (12:00)
[2018-09-04 12:10] LABS: Bilirubin,Urine Negative (Negative); Blood,Urine Negative (Negative); Clarity,Urine Clear (Clear); Color,Urine Dark Yellow (Yellow); Glucose,Urine (UA) Normal (Normal); Ketones,Urine Trace mg/dL (Negative); Leukocyte Esterase,Urine Negative (Negative); Nitrite,Urine Negative (Negative); PH,Urine 5.5 pH Units (5.0-8.0); Protein,Urine 30 mg/dL (Neg-Trace); Specific Gravity,Urine 1.023 (1.010-1.025); Urobilinogen,Urine Normal (Normal)
[2018-09-04 12:13] LABS: Bacteria,Urine None Seen per hpf (None-Few); Hyaline Casts,Urine Few per lpf (None-Few); Squamous Epithelial Cell,Urine Moderate per lpf (None-Few); WBC,Urine 0-3 per hpf (0-3)
[2018-09-04] MEDS ORDERED: 0.9 % Sodium Chloride 500 ML IVC ONE (13:27)
--- NOTE | 2018-09-04 13:49 | Internal Med History&Physical ---
Date of Encounter: 09/04/18 Time of Encounter: 14:45 Internal Medicine - H&P: HPI Chief complaint: Fever Admitted From: Emergency Dept History of present illness: Jay Paige is a 48 M w hx morbid obesity, HTN, MEHDI, OA, who p/w fever. Pt states his fever began yesterday and he's been unwell since, and today felt lightheaded/dizzy and thus came to the ED. He actually went to an urgent care middle of last week for problems with an ear infection, which he states began 2- 3 weeks ago and he completed a short course of antibiotics and that upon last week's re-eval, he was told the ear was improving. He does mention that several people in the waiting room were sick with the cold/flu. He only reports two other symptoms; he has a mild nonproductive cough which started yesterday, and today he's had two episodes of loose (almost water) stools. He specifically denies any change in his usual LLE swelling, stating that since his TKA one year ago he's had ongoing issues with leg swelling. In the ED, noted to be febrile 103, HR 120s, RR 20s, and lactate 2.9. On exam, LLE is more swollen as pt reported but is also much warmer to touch and is s ensitive to touch as well. Venous duplex obtained which was prelim negative for DVT. Sepsis eval initiated: UA and CXR unremarkable, as was rapid flu swab. Blood cultures obtained. Started on Vanc/zosyn, given 1L fluid, and admitted for possible cellulitis v viral etiology. PMH: HTN, MEHDI, OA, morbid obesity PSH: L TKA SH: nonsmoker, no EtOH FH: no history infections or immunocompromise Allergies: NKDA Past Med Surg Social Fam HX - Past Medical History Medical history: hypertension Additional medical history: sepsis from cellulitis in december 2016- right leg, bipap-sleep apnea Psychiatric history: no psych history - Past Surgical History Surgical History: other Additional surgical history: Left knee scope, colonoscopy-2010, fissure repair- 2010, wisdom teeth extraction, left knee arthroscopy partial lateral meni sectomy-2014, right knee arthroscopy lateral menisectomy-, left knee partial lateral menisectomy-2016 - Social History Smoking Status: Never smoker Smokeless Tobacco Status: No Alcohol use: none Drug use: none - Family History Mother Adopted: No Hx Family Cardiac Disorders: Yes (stroke) Hx Family Endocrine Disorder: Yes (pancreatitis) Father Adopted: No Internal Medicine - H&P: Meds Valsartan/Hydrochlorothiazide [Diovan Hct 160-25 mg Tablet] 1 tab PO DAILY 05/19/17 [History] OxyCODONE Immed Rel [Roxicodone 5 MG] 5 mg PO Q6HR PRN 7 Days #28 tablet 09/19/17 [Rx] Acetaminophen [Tylenol Arthritis] 1,300 mg PO Q8H PRN 09/20/17 [History] Aspirin Enteric Coated [Aspirin EC] 325 mg PO BID #20 tablet. 09/20/17 [Rx] Allergy/AdvReac Type Severity Reaction Status Date / Time No Known Allergies Allergy Verified 09/20/17 09:09 All Systems PM: A 10-system review of systems was performed and is negative for pertinent findings except as documented above in the HPI. Review of systems: Constitutional: +fever, +chills, night sweats, weight change, appetite change, +malaise/fatigue Skin: No rash, itching, lesions, bruises HENT: No congestion, sore throat, +ear fullness R side Eyes: No blurry vision, diminished vision Cardiovascular: No chest pain, palpitations, edema, orthopnea Respiratory: +cough, shortness of breath, wheezing Gastrointestinal: No nausea, vomiting, abdominal pain, +diarrhea, constipation Genitourinary: No dysuria, hematuria Musculoskeletal: +stable chronic joint pains, decreased range of motion Neurological: +dizziness, headaches, weakness, confusion Psychiatric: No depression, anxiety Allergy/Immunology: No history of environmental allergies, urticaria Endocrine: No polydipsia, polyuria, cold/heat intolerance - Constitutional Vitals: Temp Pulse Resp BP Pulse Ox 103 F H 118 24 117/54 98 09/04/18 10:18 09/04/18 10:18 09/04/18 10:09/04/18 10:09/04/18 12:57 Exam: General: NAD, good eye contact, ill but non-toxic, morbidly obese, fidgety/uncomfortable Head: Atraumatic, normocephalic. Face symmetric Eyes: EOMI, sclerae anicteric ENT: Mucous membranes dry. Normal oral mucosa and dentition. Trachea midline. Unable to appreciate cervical lymphadenopathy 2/2 neck habitus Thoracic: No visible chest wall deformities. Normal breath sounds b/l, no wheezing or crackles Cardio: Normal S1 and S2, regular rhythm, tachycardic Abdomen: Soft, nontender, nondistended. Bowel sounds present. No rebound. Obese. Extremities: Warm, well perfused. DP pulses 2+ b/l. No clubbing, cyanosis. Does have mild L>R BLE edema, L side w faint erythema and noticeable warmth Skin: Intact. No bruises or ulcers Neuro: Awake, fully oriented. Good memory, concentration, attention. Speech fluent. CN II-XII grossly intact. Strength 5/5 in b/l UE and LE Internal Med - H&P Results - Labs CBC & Chem 7: 09/04/18 11:16 09/04/18 11:16 Labs: Short CBC 09/04/18 Range/Units 11:16 WBC 9.2 (4.3-11.1) K/mcL Hgb 13.6 (12.9-16.9) g/dL Hct 41.6 (37.5-50.1) % Plt Count 224 (140-400) K/mcL Neutrophils # 8.0 (1.6-8.9) K/mcL BMP 09/04/18 11:16 Sodium 135 L Potassium 3.7 Chloride 100 Carbon Dioxide 26 BUN 15 Creatinine 1.18 Glucose 124 H Calcium 9.9 Liver Function 09/04/18 Range/Units 11:16 Total Bilirubin 0.5 (0.3-1.0) mg/dL Direct Bilirubin 0.1 (0.0-0.2) mg/dL AST 16 (13-39) Units/L ALT 24 (7-52) Units/L Alkaline Phosphatase 79 (34-104) Units/L Albumin 4.0 (3.5-5.7) g/dL Urine 09/04/18 Range/Units 11:55 Urine Color Dark Yellow (Yellow) Urine Clarity Clear (Clear) Urine pH 5.5 (5.0-8.0) pH Units Ur Specific [place] 1.023 (1.010-1.025) Urine Protein 30 H (Neg-Trace) mg/dL Urine Glucose (UA) Normal (Normal) mg/dL - Impressions ITS Impressions Chest X-Ray 09/04/18 10:44 IMPRESSION: No acute process. D/ / Baljinder Elam MD / Baljinder Elam MD Interpreting Provider: Baljinder Elam MD - Assessment and plan (1) Severe sepsis Current Visit: Yes Status: Acute Assessment and plan: Jay Paige is a 48 M w hx HTN, MEHDI, morbid obesity, who p/w fever, tachycardia, tachypnea, and elevated lactate, concerning for severe sepsis. Severe Sepsis: SIRS 3/4 (WBC wnl), lactate elevated, UA and CXR and rapid flu unremarkable. Venous duplex LLE negative. LLE swollen but knee and ankle joints symmetric to RLE. Does have high fever and nonproductive cough and watery diarrhea following exposure to sick contacts at an urgent care suggesting possible viral etiology - BCx x2 obtained - NS 1L bolus s/p 1L bolus in ED - trend lactate until <2 - empiric vanc/zosyn given elevated lactate and relative hypotension Cellulitis: erythematous painful leg rash although per patient it is not much different than baseline - abx as above Hypomagnesemia: replace and monitor Hypophosphatemia: replace and monitor HTN: holding home valsartan/hctz OA: chronic pain meds Morbid obesity: BMI 58 PPx: lovenox FEN: regular, no MIVF Lines: PIV Consults: Code: Full Dispo: patient requires inpatient eval and management at this time. Anticipate 2-3 days. Will be homegoing. - Time Spent With Patient Total time spent is greater than 50% in coordination of care (as documented) at patient's floor/unit and/or counseling patient:
[2018-09-04] MEDS: Acetaminophen 325 MG TABLET PO PRN (20:01)
[2018-09-04] MEDS ORDERED: Piperacillin/Tazobactam 3.375 GM in 0.9 % Sodium Chloride Mini Bag 100 ML IVPB SCH (21:00)
[2018-09-05] MEDS ORDERED: 0.9 % Sodium Chloride 500 ML IVC ONE (00:58)
[2018-09-05] MEDS: Piperacillin/Tazobactam 3.375 GM in 0.9 % Sodium Chloride Mini Bag 100 ML IVPB SCH ×3 (04:29→19:49)
[2018-09-05] MEDS: *HR* Enoxaparin 40 MG/0.4 ML SYRINGE SQ SCH (04:30)
[2018-09-05 04:48] LABS: BUN/Creatinine Ratio 15 (6-26); Blood Urea Nitrogen 19 mg/dL (6-20); Carbon Dioxide 24 mEq/L (23-29); Chloride 104 mEq/L (98-107); Glucose 124 mg/dL (70-105); Osmolality,Calculated 284 (280-300); Phosphorous 3.1 mg/dL (2.7-4.5); Potassium 3.5 mEq/L (3.5-5.1); Sodium 135 mEq/L (136-145); eGFR For Non-African Americans > 60 (> 60)
[2018-09-05 05:16] LABS: Basophils % 0.4 %; Hematocrit 37.3 % (37.5-50.1); Hemoglobin 12.4 g/dL (12.9-16.9); Immature Granulocytes % 0.9 % (0-4); Lymphocytes # 1.9 K/mcL (0.6-4.6); Lymphocytes % 24.8 %; Mean Corpuscular HGB Conc 33.2 g/dL (31.6-35.5); Mean Corpuscular Hemoglobin 27.4 pg (28.0-33.3); Mean Corpuscular Volume 82.5 fL (83.0-100.0); Mean Platelet Volume 9.9 fL (9.4-12.4); Monocytes # 1.1 K/mcL (0.0-1.3); Monocytes % 15.2 %; Neutrophils # 4.4 K/mcL (1.6-8.9); Nucleated Red Blood Cells 0.3 /100 WBC (0); Platelet Count 169 K/mcL (140-400); Red Blood Count 4.52 M/mcL (4.19-5.50); Red Cell Distribution Width 15.4 % (11.5-14.5); Segmented Neutrophils % 58.7 %
[2018-09-05] MEDS ORDERED: Aminoglycoside Consult 1 EACH MC ONE (08:12)
--- NOTE | 2018-09-05 12:41 | Internal Med Progress Note ---
Hospitalist Progress Note - Encounter Date of Encounter: 09/05/18 Time of Encounter: 12:39 - Subjective Interval History: Still fevering. Feels better than yesterday, though. Able to sleep some last night. Says his legs continue to swell as usual but no change in baseline. He is still coughing and has requested cough drops due to persistence of cough, no SOB and cough not productive. Did have one more episode of diarrhea this AM. - Exam Vitals: Temp Pulse Resp BP Pulse Ox 100.3 F H 89 18 116/72 94 09/05/18 10:44 09/05/18 10:44 09/05/18 10:44 09/05/18 10:44 09/05/18 10:44 Exam: General: NAD, good eye contact, well appearing, morbidly obese Thoracic: Normal breath sounds b/l, no wheezing or crackles Cardio: Normal S1 and S2, regular rhythm and rate Abdomen: Soft, nontender, obese. Extremities: Warm, well perfused. DP pulses 2+ b/l. Does have mild L>R BLE edema, symmetric faint erythema and normal temperature today Skin: Intact. No bruises or ulcers Neuro: Awake, fully oriented. Speech fluent. - Assessment and Plan (1) Severe sepsis Current Visit: Yes Status: Acute - Summary of Assessment and Plan Summary of Assessment and Plan: Jay Paige is a 48 M w hx HTN, MEHDI, morbid obesity, who p/w fever, tachycardia, tachypnea, and elevated lactate, concerning for severe sepsis. Severe Sepsis: SIRS and hypotension improved, still febrile. UA and CXR and rapid flu unremarkable. Venous duplex LLE negative. BLE with stable symmetric swelling. Does continue to have fever, nonproductive cough, and diarrhea, suggestive of possible viral etiology - BCx x2 ngtd - continue empiric vanc/zosyn - check Resp viral panel, if positive can d/c abx and discharge, and if negative, would consider change to PO levaquin and when stops fevering could discharge Lactic acidemia (poa): resolved Cellulitis: legs appear symmetric and without warmth/pain/redness, unlikely to be cellulitis Hypomagnesemia: replaced Hypophosphatemia: replaced HTN: holding home valsartan/hctz OA: chronic pain meds Morbid obesity: BMI 58 PPx: lovenox FEN: regular, no MIVF Lines: PIV Consults: Code: Full Dispo: patient requires inpatient eval and management at this time. Anticipate 1-2 days. Will be homegoing. - Time Spent with Patient Total time spent is greater than 50% in coordination of care (as documented) at patient's floor/unit and/or counseling patient: Internal Medicine: Result - Labs CBC & Chem 7: 09/05/18 05:02 09/05/18 04:11 Labs: Short CBC 09/05/18 Range/Units 05:02 WBC 7.5 (4.3-11.1) K/mcL Hgb 12.4 L (12.9-16.9) g/dL Hct 37.3 L (37.5-50.1) % Plt Count 169 (140-400) K/mcL Neutrophils # 4.4 (1.6-8.9) K/mcL BMP 09/05/18 04:11 Sodium 135 L Potassium 3.5 Chloride 104 Carbon Dioxide 24 BUN 19 Creatinine 1.23 Glucose 124 H Calcium 9.0 Consult Discharge Plan - Plan Referrals: Amol Han DO [Primary Care Provider] -
[2018-09-05 14:49] LABS: Adenovirus Not Detected (Not Detect); Bordetella Pertussis Not Detected (Not Detect); Chlamydophila pneumoniae Not Detected (Not Detect); Coronavirus 229E Not Detected (Not Detect); Coronavirus HKU1 Not Detected (Not Detect); Coronavirus NL63 Not Detected (Not Detect); Coronavirus OC43 Not Detected (Not Detect); Human Metapneumovirus Not Detected (Not Detect); Human Rhinovirus/Enterovirus Not Detected (Not Detect); Influenza A Subtype 2009 H1 DETECTED (Not Detect); Influenza A Untypeable Not Detected (Not Detect); Influenza B Not Detected (Not Detect); Mycoplasma pneumoniae Not Detected (Not Detect); Parainfluenza Virus 1 Not Detected (Not Detect); Parainfluenza Virus 2 Not Detected (Not Detect); Parainfluenza Virus 3 Not Detected (Not Detect); Parainfluenza Virus 4 Not Detected (Not Detect); Respiratory Syncytial Virus Not Detected (Not Detect)
[2018-09-05] MEDS: Acetaminophen 325 MG TABLET PO PRN (19:48)
[2018-09-06] MEDS: *HR* Enoxaparin 40 MG/0.4 ML SYRINGE SQ SCH (06:26)
[2018-09-06 10:19] VITALS: BP 108/70
--- NOTE | 2018-09-06 12:28 | Discharge Summary ---
- NOTES TO OUTPATIENT PROVIDER Notes to Outpatient Provider: Assented with fever was positive for influenza A- started on Tamiflu-encourage fluids Orders not resulted at time of discharge: Pending orders 09/04/18 11:16 Culture,Blood [BC] Stat Date of Encounter: 09/06/18 Time of Encounter: 12:25 - Discharge Diagnosis (1) Influenza A (H1N1) Priority: Primary Status: Acute (2) Severe sepsis Priority: Secondary Status: Acute (3) Essential hypertension Priority: Secondary Status: Chronic (4) Morbid obesity due to excess calories Priority: Secondary Status: Chronic Hospital course: Mr. Paige is a 48 year old male past medical history of morbid obesity hypertension obstructive sleep apnea presented to [facility] ED with complaints of fever. Patient states fever began day before presentation however he felt unwell lightheaded and dizzy M presented with these complaints. He been to the urgent care last week with with ear infection and completed a short course of antibiotics he was reevaluated and was told year was improving. He does admit that while in the waiting room he was exposed to several sick individuals with cold/flu symptoms. On presentation he was afebrile with a temperature 100.3 heart rate 120s respiratory rate 2019.9. He also complained of left lower extremity swelling and warm to touch. Venous duplex was obtained and was negative for any DVT. Sepsis protocol was initiated UA and chest x-ray were unremarkable patient was given IV fluid and started on any uric antibiotic of vancomycin and Zosyn right. Respiratory infectious panel was completed which was positive for influenza A. Patient was initiated on Tamiflu. Antibiotics were discontinued. Lactate did improve returned to normal Patient has been t olerating oral intake and vital signs have been stable. Patient was ambulating in the hallway and saturations were stable. Advised patient to continue with oral hydration and return to the emergency department unable to tolerate eating or drinking. Advised patient to follow-up with primary care provider as well as to hold his blood pressure medication this time. Patient was given prescription for Tamiflu. His blood pressure has been low during this admission encourage patient to continue to drink water and to hold blood pressure medication until he is evaluated by his primary care provider. Patient verbalized understanding. - Time Spent with Patient Total time spent providing and/or coordinating discharge services: - Discharge Medications Prescriptions: Oseltamivir [Tamiflu] 75 mg PO BID #8 capsule Home Medications: ASA/Calcium Carb/Mag/Al Hydrox [Dimple Plus 500 mg Caplet] 500 mg PO DAILY PRN 09/06/18 [History] Cetirizine HCl [Zyrtec] 10 mg PO DAILY 09/06/18 [History] Gabapentin [Neurontin] 600 mg PO TID 09/06/18 [History] Oseltamivir [Tamiflu] 75 mg PO BID #8 capsule 09/06/18 [Rx] Allergies/Adverse Reactions: Allergy/AdvReac Type Severity Reaction Status Date / Time No Known Allergies Allergy Verified 09/06/18 08:45 Date of admission: 09/04/18 14:09 Primary care physician: Amol Han DO Discharging clinician: Patricia Bethea Anticipated date of discharge: 09/06/18 - Constitutional Vitals: Temp Pulse Resp BP Pulse Ox 98.3 F 80 18 108/70 94 09/06/18 10:16 09/06/18 10:16 09/06/18 10:16 09/06/18 10:16 09/06/18 10:16 General appearance: Present: A&O X 3, morbidly obese Exam: . - Head Head exam: Present: atraumatic, normocephalic - Eye Eye exam: Present: PERRL, conjuntiva pink, sclera anicteric Pupils: Present: PERRL - Neck Neck exam general surgery: Present: supple, trachea midline. Absent: lymphadenopathy - Respiratory Respiratory exam: Present: CTAB. Absent: accessory muscle use, rales, rhonchi, wheezes - Cardiovascular Cardiovascular exam: Present: RRR, +S1, +S2. Absent: diastolic murmur, gallop, rubs, systolic murmur - GI/Abdominal GI/Abdominal exam: Present: normal bowel sounds, soft, no peritoneal signs. Absent: distended, tenderness - Extremities Exam Extremities exam: Present: warm, radial pulses palpable and symmetrical. Absent: calf tenderness, cyanotic, pedal edema - Neurological Exam Neurological exam: Present: CN II-XII intact, oriented X3, no focal deficits. Absent: pronater drift, facial droop, speech deficit - Skin Skin exam: Present: dry, intact - Patient Status Disposition: Home, Self-Care Condition: Good Functional capacity at discharge: independent ambulation - Discharge Instructions Follow Up With: Amol Han DO [Primary Care Provider] - - Diet and Activity Activity: increase activity as tolerated Diet: advance to your usual diet
--- NOTE | 2018-09-06 20:25 | Electrocardiograph Report ---
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
--- NOTE | 2018-09-06 20:31 | Electrocardiograph Report ---
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
== END 2018-09-06 14:11 | disposition home or self-care (01) | DRG 872 ==
LOC: EMEROOARM 10:12 → 3ANU 14:09 → SUATTDRO 14:09 → 3ANU 15:46
PROVIDERS: ADMIT Internal Medicine; ATTEND Internal Medicine

== ENCOUNTER 2020-05-23 10:47 | Observation (INO) ==
[2020-05-23] MEDS ORDERED: Doxycycline 100 MG in 0.9 % Sodium Chloride Mini Bag 100 ML IVPB ONE (11:52)
[2020-05-23 12:07] LABS: Basophils % 0.4 %; Eosinophils # 0.1 K/mcL (0.0-0.6); Eosinophils % 0.4 %; Hematocrit 45.9 % (37.5-50.1); Hemoglobin 14.9 g/dL (12.9-16.9); Immature Granulocytes % 0.5 % (0-4); Lymphocytes # 1.7 K/mcL (0.6-4.6); Lymphocytes % 15.3 %; Mean Corpuscular HGB Conc 32.5 g/dL (31.6-35.5); Mean Corpuscular Hemoglobin 28.7 pg (28.0-33.3); Mean Corpuscular Volume 88.3 fL (83.0-100.0); Mean Platelet Volume 10.3 fL (9.4-12.4); Monocytes # 0.7 K/mcL (0.0-1.3); Monocytes % 6.2 %; Neutrophils # 8.8 K/mcL (1.6-8.9); Platelet Count 231 K/mcL (140-400); Red Cell Distribution Width 14.2 % (11.5-14.5); Segmented Neutrophils % 77.2 %; White Blood Count 11.4 K/mcL (4.3-11.1)
[2020-05-23 12:11] LABS: Bilirubin,Urine Negative (Negative); Blood,Urine Negative (Negative); Clarity,Urine Clear (Clear); Color,Urine Light-Yellow (Yellow); Glucose,Urine (UA) Normal (Normal); Ketones,Urine Negative (Negative); Leukocyte Esterase,Urine Negative (Negative); Nitrite,Urine Negative (Negative); PH,Urine 7.5 pH Units (5.0-8.0); Protein,Urine Negative (Neg-Trace); Urobilinogen,Urine Normal (Normal)
[2020-05-23 12:29] LABS: BUN/Creatinine Ratio 17 (6-26); Blood Urea Nitrogen 13 mg/dL (6-20); C-Reactive Protein 35 mg/L (Less than 10); Calcium 10.9 mg/dL (8.6-10.3); Carbon Dioxide 28 mEq/L (23-29); Chloride 101 mEq/L (98-107); Glucose 130 mg/dL (70-105); Osmolality,Calculated 282 (280-300); Sodium 135 mEq/L (136-145); eGFR For African Americans > 60 (> 60); eGFR For Non-African Americans > 60 (> 60)
[2020-05-23 13:40] LABS: HIV-1&2 Antibody & p24 Ag Nonreactive (Nonreactive)
[2020-05-23 14:28] LABS: Alanine Aminotransferase 19 Units/L (7-52); Albumin 4.3 g/dL (3.5-5.7); Albumin/Globulin Ratio 1.5 (1.1-2.2); Alkaline Phosphatase 88 Units/L (34-104); Aspartate Amino Transferase 15 Units/L (13-39); Bilirubin,Direct 0.1 mg/dL (0.0-0.2); Bilirubin,Indirect 0.6 mg/dL (0.0-1.0); Bilirubin,Total 0.7 mg/dL (0.3-1.0); Globulin 2.8 g/dL (2.4-3.5); Total Protein 7.1 g/dL (6.4-8.9)
[2020-05-23] MEDS ORDERED: Naloxone 0.4 MG/ML INJ IVP PRN (14:56)
[2020-05-23] MEDS ORDERED: Ondansetron 4 MG/2 ML VIAL IVP PRN (14:56)
[2020-05-23 15:25] LABS: Hepatitis C Virus Antibody Nonreactive (Nonreactive)
[2020-05-23 15:26] LABS: Hepatitis B Core IgM Nonreactive (Nonreactive)
[2020-05-23 15:28] LABS: Hepatitis A Antibody IgM Nonreactive (Nonreactive)
[2020-05-23] MEDS: cefTRIAXone 1,000 MG in Water for inj. (sterile) 10 ML IVP SCH (16:21)
[2020-05-23] MEDS: Vancomycin 2,000 MG/520 ML IV.SOLN IVPB SCH (16:23)
[2020-05-23] MEDS ORDERED: Furosemide 40 MG TABLET PO ONE (17:21)
[2020-05-23] MEDS ORDERED: Acetaminophen 325 MG TABLET PO PRN (18:30)
[2020-05-23] MEDS: Gabapentin 300 MG CAPSULE PO SCH (20:12)
[2020-05-24 02:26] LABS: Basophils % 0.2 %; Eosinophils # 0.1 K/mcL (0.0-0.6); Hematocrit 41.4 % (37.5-50.1); Hemoglobin 13.5 g/dL (12.9-16.9); Immature Granulocytes % 0.4 % (0-4); Lymphocytes # 2.1 K/mcL (0.6-4.6); Lymphocytes % 19.8 %; Mean Corpuscular HGB Conc 32.6 g/dL (31.6-35.5); Mean Corpuscular Hemoglobin 28.4 pg (28.0-33.3); Mean Platelet Volume 10.1 fL (9.4-12.4); Monocytes # 0.8 K/mcL (0.0-1.3); Monocytes % 7.2 %; Neutrophils # 7.5 K/mcL (1.6-8.9); Platelet Count 238 K/mcL (140-400); Red Blood Count 4.76 M/mcL (4.19-5.50); Red Cell Distribution Width 14.2 % (11.5-14.5); Segmented Neutrophils % 71.4 %; White Blood Count 10.5 K/mcL (4.3-11.1)
[2020-05-24 02:38] LABS: BUN/Creatinine Ratio 17 (6-26); Blood Urea Nitrogen 13 mg/dL (6-20); Calcium 10.2 mg/dL (8.6-10.3); Carbon Dioxide 27 mEq/L (23-29); Chloride 102 mEq/L (98-107); Chol/HDL Ratio 4.3 (0-4.9); Cholesterol 156 mg/dL (< 200); Glucose 140 mg/dL (70-105); HDL Cholesterol 36 mg/dL (40-59); LDL Cholesterol,Calculated 99 mg/dL (< 100); Magnesium 1.6 mg/dL (1.6-2.6); Osmolality,Calculated 286 (280-300); Potassium 3.7 mEq/L (3.5-5.1); Sodium 137 mEq/L (136-145); Triglycerides 103 mg/dL (< 150); eGFR For African Americans > 60 (> 60); eGFR For Non-African Americans > 60 (> 60)
[2020-05-24] MEDS: Vancomycin 2,000 MG/520 ML IV.SOLN IVPB SCH (04:42)
[2020-05-24 08:26] LABS: Estimated Average Glucose 148 mg/dl
[2020-05-24] MEDS ORDERED: Valsartan 160 MG TABLET PO SCH (09:00)
[2020-05-24] MEDS: cefTRIAXone 1,000 MG in Water for inj. (sterile) 10 ML IVP SCH (09:06)
[2020-05-24] MEDS: Valsartan 320 MG, hydroCHLOROthiazide 25 MG PO SCH (09:07)
[2020-05-24] MEDS: Furosemide 40 MG TABLET PO SCH (09:08)
[2020-05-24] MEDS: Gabapentin 300 MG CAPSULE PO SCH ×3 (09:08→21:01)
[2020-05-24] MEDS: *HR* Heparin 5,000 UNIT/ML VIAL SQ SCH ×2 (13:46→17:12)
[2020-05-24] MEDS ORDERED: *HR* Dextrose 50 % in Water (Vial) 50 ML VIAL IVP PRN (14:15)
[2020-05-24] MEDS ORDERED: D5% in Water 1,000 ML IVC PRN (14:15)
[2020-05-24] MEDS ORDERED: Dextrose Gel 15 GM/37.5 ML TUBE PO PRN ×2 (14:15)
[2020-05-24] MEDS: Insulin LISPRO 300 UNITS/3 ML VIAL SQ SCH (17:10)
[2020-05-24] MEDS ORDERED: Insulin LISPRO 300 UNITS/3 ML VIAL SQ SCH (21:00)
[2020-05-25] MEDS: *HR* Heparin 5,000 UNIT/ML VIAL SQ SCH (05:14)
[2020-05-25 07:36] VITALS: BP 116/82
[2020-05-25] MEDS: cefTRIAXone 1,000 MG in Water for inj. (sterile) 10 ML IVP SCH (08:01)
[2020-05-25] MEDS: Furosemide 40 MG TABLET PO SCH (08:02)
[2020-05-25] MEDS: Gabapentin 300 MG CAPSULE PO SCH (08:02)
[2020-05-25] MEDS: Valsartan 320 MG, hydroCHLOROthiazide 25 MG PO SCH (08:02)
[2020-05-25] MEDS: Insulin LISPRO 300 UNITS/3 ML VIAL SQ SCH (08:03)
[2020-05-25 09:30] LABS: Basophils % 0.5 %; Eosinophils # 0.1 K/mcL (0.0-0.6); Eosinophils % 1.1 %; Hemoglobin 13.4 g/dL (12.9-16.9); Immature Granulocytes % 0.5 % (0-4); Lymphocytes # 1.7 K/mcL (0.6-4.6); Mean Corpuscular HGB Conc 31.9 g/dL (31.6-35.5); Mean Corpuscular Hemoglobin 27.5 pg (28.0-33.3); Mean Corpuscular Volume 86.2 fL (83.0-100.0); Mean Platelet Volume 10.4 fL (9.4-12.4); Monocytes # 0.6 K/mcL (0.0-1.3); Monocytes % 7.7 %; Neutrophils # 5.3 K/mcL (1.6-8.9); Platelet Count 257 K/mcL (140-400); Red Blood Count 4.87 M/mcL (4.19-5.50); Red Cell Distribution Width 14.2 % (11.5-14.5); Segmented Neutrophils % 68.2 %; White Blood Count 7.8 K/mcL (4.3-11.1)
[2020-05-25 09:48] LABS: BUN/Creatinine Ratio 21 (6-26); Blood Urea Nitrogen 16 mg/dL (6-20); Calcium 10.2 mg/dL (8.6-10.3); Carbon Dioxide 27 mEq/L (23-29); Chloride 102 mEq/L (98-107); Glucose 124 mg/dL (70-105); Magnesium 1.9 mg/dL (1.6-2.6); Osmolality,Calculated 285 (280-300); Phosphorous 2.7 mg/dL (2.7-4.5); Potassium 3.8 mEq/L (3.5-5.1); Sodium 136 mEq/L (136-145); eGFR For African Americans > 60 (> 60); eGFR For Non-African Americans > 60 (> 60)
[2020-05-26 10:24] LABS: ANA IgG by ELISA NONE DETECTED (None Detected)
== END 2020-05-25 10:51 | disposition home or self-care (01) ==
LOC: 3ANU 10:47 → EMEROOARM 10:47 → SUATTDRO 14:59 → 3ANU 15:42
PROVIDERS: ADMIT Internal Medicine; ATTEND Internal Medicine

== ENCOUNTER 2022-03-30 20:55 | Observation (INO) ==
[2022-03-30] MEDS ORDERED: Aspirin 81 MG TAB.CHEW ONE (21:23)
[2022-03-30] MEDS ORDERED: Nitroglycerin 0.4 MG TAB.SUBL SL ONE (21:24)
[2022-03-30] MEDS ORDERED: Aspirin 81 MG TAB.CHEW PO ONE (21:25)
[2022-03-30] MEDS: Nitroglycerin 0.4 MG TAB.SUBL SL PRN ×2 (21:25→22:15)
[2022-03-31] MEDS ORDERED: Melatonin 3 MG TABLET PO PRN (01:36)
[2022-03-31] MEDS ORDERED: Naloxone 0.4 MG/ML INJ IVP PRN (01:36)
[2022-03-31] MEDS ORDERED: Ondansetron 4 MG/2 ML VIAL IVP PRN (01:36)
[2022-03-31] MEDS ORDERED: Acetaminophen 325 MG TABLET PO PRN (01:36)
[2022-03-31] MEDS ORDERED: D5% in Water 1,000 ML IVC PRN (02:10)
[2022-03-31] MEDS ORDERED: Dextrose Gel 15 GM/37.5 ML TUBE PO PRN ×2 (02:10)
[2022-03-31] MEDS ORDERED: *HR* Dextrose 50 % in Water (Syg) 50 ML SYRINGE IVP PRN (02:10)
[2022-03-31 02:52] LABS: Activated Partial Thrombo Time 32.7 Seconds (26.0-36.0); Basophils % 0.3 %; Eosinophils # 0.1 K/mcL (0.0-0.6); Eosinophils % 0.8 %; Hematocrit 46.1 % (37.5-50.1); Hemoglobin 15.1 g/dL (12.9-16.9); INR 1.1; Immature Granulocytes % 0.4 % (0-4); Lymphocytes # 2.2 K/mcL (0.6-4.6); Mean Corpuscular HGB Conc 32.8 g/dL (31.6-35.5); Mean Corpuscular Hemoglobin 28.2 pg (28.0-33.3); Mean Platelet Volume 10.1 fL (9.4-12.4); Monocytes # 0.6 K/mcL (0.0-1.3); Monocytes % 5.9 %; Neutrophils # 6.8 K/mcL (1.6-8.9); Platelet Count 266 K/mcL (140-400); Prothrombin Time 12.4 Seconds (9.4-12.1); Red Blood Count 5.36 M/mcL (4.19-5.50); Red Cell Distribution Width 14.3 % (11.5-14.5); Segmented Neutrophils % 69.6 %; White Blood Count 9.8 K/mcL (4.3-11.1)
[2022-03-31 03:35] LABS: Chloride 103 mEq/L (98-107); Sodium 138 mEq/L (136-145)
[2022-03-31 03:36] LABS: Alanine Aminotransferase 23 Units/L (7-52); Albumin 4.3 g/dL (3.5-5.7); Albumin/Globulin Ratio 1.7 (1.1-2.2); Alkaline Phosphatase 48 Units/L (34-104); Aspartate Amino Transferase 15 Units/L (13-39); BUN/Creatinine Ratio 15 (6-26); Bilirubin,Direct 0.1 mg/dL (0.0-0.2); Bilirubin,Indirect 0.3 mg/dL (0.0-1.0); Bilirubin,Total 0.4 mg/dL (0.3-1.0); Blood Urea Nitrogen 19 mg/dL (6-20); Calcium 10.8 mg/dL (8.6-10.3); Carbon Dioxide 28 mEq/L (23-29); Globulin 2.5 g/dL (2.4-3.5); Glucose 142 mg/dL (70-105); Lipase 45 Units/L (11-82); Magnesium 1.6 mg/dL (1.6-2.6); Osmolality,Calculated 291 (280-300); Total Protein 6.8 g/dL (6.4-8.9)
[2022-03-31 03:40] LABS: Troponin I < 0.03 ng/mL (< 0.04)
[2022-03-31 05:06] LABS: Basophils % 0.4 %; Eosinophils # 0.1 K/mcL (0.0-0.6); Eosinophils % 0.8 %; Hemoglobin 14.4 g/dL (12.9-16.9); Immature Granulocytes % 0.5 % (0-4); Lymphocytes # 2.4 K/mcL (0.6-4.6); Lymphocytes % 24.5 %; Mean Corpuscular Volume 87.4 fL (83.0-100.0); Mean Platelet Volume 10.5 fL (9.4-12.4); Monocytes # 0.7 K/mcL (0.0-1.3); Monocytes % 6.8 %; Neutrophils # 6.4 K/mcL (1.6-8.9); Platelet Count 228 K/mcL (140-400); Red Blood Count 5.15 M/mcL (4.19-5.50); Red Cell Distribution Width 14.3 % (11.5-14.5); White Blood Count 9.6 K/mcL (4.3-11.1)
[2022-03-31 05:09] LABS: Estimated Average Glucose 126 mg/dl
[2022-03-31 05:14] LABS: INR 1.2; Prothrombin Time 12.9 Seconds (9.4-12.1)
[2022-03-31 05:16] LABS: Activated Partial Thrombo Time 34.2 Seconds (26.0-36.0)
[2022-03-31 05:22] LABS: Albumin 3.9 g/dL (3.5-5.7); Albumin/Globulin Ratio 1.6 (1.1-2.2); Bilirubin,Total 0.5 mg/dL (0.3-1.0); Calcium 10.3 mg/dL (8.6-10.3); Chol/HDL Ratio 3.8 (0-4.9); Globulin 2.5 g/dL (2.4-3.5); Magnesium 1.6 mg/dL (1.6-2.6); Phosphorous 2.8 mg/dL (2.7-4.5); Total Protein 6.4 g/dL (6.4-8.9)
[2022-03-31] MEDS: Insulin LISPRO 300 UNITS/3 ML VIAL SUBQ SCH ×3 (06:12→16:27)
[2022-03-31] MEDS: *HR* Heparin 5,000 UNIT/ML VIAL SQ SCH ×3 (06:12→21:48)
[2022-03-31] MEDS ORDERED: Iopamidol - 370 500 ML MLS IVP ONE (07:23)
[2022-03-31] MEDS ORDERED: Regadenoson 0.4 MG/5 ML SYRINGE IVP ONE (08:48)
[2022-03-31] MEDS ORDERED: Valsartan 160 MG TABLET PO SCH (09:00)
[2022-03-31] MEDS ORDERED: Nitroglycerin 0.4 MG TAB.SUBL SL PRN (09:49)
[2022-03-31] MEDS ORDERED: Aspirin 81 MG TAB.CHEW PO ONE (10:00)
[2022-03-31] MEDS: Gabapentin 300 MG CAPSULE PO SCH ×2 (14:13→21:47)
[2022-04-01] MEDS: Insulin LISPRO 300 UNITS/3 ML VIAL SUBQ SCH ×3 (03:05→11:36)
[2022-04-01] MEDS: *HR* Heparin 5,000 UNIT/ML VIAL SQ SCH (05:27)
[2022-04-01] MEDS: Gabapentin 300 MG CAPSULE PO SCH (08:52)
[2022-04-01] MEDS ORDERED: Aspirin 81 MG TAB.CHEW PO SCH (09:00)
[2022-04-01 11:15] VITALS: BP 117/76; PULSE 70; TEMP 97.5; O2SAT 97
== END 2022-04-01 14:47 | disposition home or self-care (01) ==
LOC: EMEROOARM 20:55 → 3BNU 20:55 → SUATTDRO 03-31 01:04 → 3BNU 03-31 01:44
PROVIDERS: ADMIT Internal Medicine; ATTEND Nurse Practitioner